=== PATIENT | male | born 1970 | race Caucasian/White ===

== ENCOUNTER 2020-12-13 18:20 | Inpatient (IN) | payer OTHER, SELFPAY ==
--- NOTE | 2020-12-13 | ECG_ITS ---
Test Reason : REPEAT Blood Pressure : / mmHG Vent. Rate : 085 BPM Atrial Rate : 085 BPM P-R Int : 136 ms QRS Dur : 098 ms QT Int : 370 ms P-R-T Axes : 011 018 031 degrees QTc Int : 440 ms Normal sinus rhythm cannot exclude old Inferior infarct , age undetermined Abnormal ECG When compared with ECG of 13-DEC-2020 19:56, No significant change was found Referred By: Generic ED Physician Electronically Signed By:RANCHO GODWIN
--- NOTE | 2020-12-13 | ECG_ITS ---
Test Reason : REPEAT Blood Pressure : / mmHG Vent. Rate : 080 BPM Atrial Rate : 080 BPM P-R Int : 146 ms QRS Dur : 100 ms QT Int : 368 ms P-R-T Axes : 016 026 044 degrees QTc Int : 424 ms Normal sinus rhythm Normal ECG When compared with ECG of 13-DEC-2020 20:35, No significant change was found Referred By: Generic ED Physician Electronically Signed By:RANCHO GODWIN
--- NOTE | ~2020-12-13 | XR_ITS ---
EXAMINATION: XR CHEST CLINICAL INFORMATION: Chest pain COMPARISON: 06/29/2019 TECHNIQUE: Frontal view of the chest was obtained. FINDINGS: Again seen are changes of median sternotomy. No significant abnormality is noted involving the heart, lungs, mediastinum, bony thorax or soft tissues. XR/XR chest 1V IMPRESSION: No acute intrathoracic disease.
[2020-12-13 18:27] VITALS: BP 134/99; PULSE 82; RESP 20; TEMP 37.2; O2SAT 95; BMI 35.9
--- NOTE | 2020-12-13 18:47 | ECG_ITS ---
Test Reason : CHEST PAIN(REPEAT) Blood Pressure : / mmHG Vent. Rate : 090 BPM Atrial Rate : 090 BPM P-R Int : 000 ms QRS Dur : 094 ms QT Int : 360 ms P-R-T Axes : 000 028 039 degrees QTc Int : 440 ms Accelerated Junctional rhythm Abnormal ECG When compared with ECG of 13-DEC-2020 18:36, Junctional rhythm has replaced Sinus rhythm Referred By: Charlotte Foote Electronically Signed By:
--- NOTE | 2020-12-13 18:47 | ED_ITS ---
HPI - Chest Pain General Chief Complaint: Chest Pain Stated Complaint: Chest pain Time Seen by Provider: 12/13/20 22:20 Source: patient Mode of arrival: ambulatory Limitations: no limitations History of Present Illness HPI narrative: 50-year-old male with significant past medical history of insulin-dependent type 2 diabetes, asthma, COPD on 2 L nasal cannula continuous, history of renal cell carcinoma with right-sided nephrectomy, CAD status post CABG with stent in RCA and COOK to the LAD with 9 stents, history of FL in 2011, 2012, 2014, and 2015, hyperlipidemia, anxiety, hypertension, obstructive sleep apnea noncompliant with CPAP, personality disorder, presents with substernal chest pain that woke him up at 9:00 a.m.. States that this pain is 10/10, radiates up to his clavicle and down to his left arm. He has had this before several times, and is telling me that he never has any elevated cardiac enzymes or abnormal EKGs with his MIs. He did take nitroglycerin 3 tablets at 9:00 a.m. and repeated the dose at noon, states that he presents because the nitroglycerin did not help him. Does not report any trauma, fevers, chills, palpitations, shortness of breath, shortness of breath on exertion, diaphoresis, abdominal pain, abdominal distention, dysuria, hematuria, diarrhea, constipation, hematoch ezia, melena, or any other concerning symptoms. Related Data Home Medications Medication Instructions Recorded Confirmed acetaminophen [8 Hour Pain 650 mg PO Q8H PRN 12/13/20 12/13/20 Reliever] albuterol sulfate 2 puff INHALATION Q6H PRN 12/13/20 12/13/20 amitriptyline 1 tab PO BEDTIME 12/13/20 12/13/20 amlodipine 1 tab PO DAILY 12/13/20 12/13/20 aspirin 1 tab PO DAILY 12/13/20 12/13/20 atorvastatin 1 tab PO DAILY 12/13/20 12/13/20 cetirizine 1 tab PO DAILY 12/13/20 12/13/20 clonazepam 1 tab PO BEDTIME 12/13/20 12/13/20 cyclobenzaprine 1 tab PO TID PRN 12/13/20 12/13/20 docusate sodium [DOK] 1 cap PO BID 12/13/20 12/13/20 empagliflozin [Jardiance] 1 tab PO DAILY 12/13/20 12/13/20 ezetimibe 1 tab PO DAILY 12/13/20 12/13/20 gabapentin 300 mg PO BID@0900,1500 12/13/20 12/13/20 gabapentin 600 mg PO BEDTIME 12/13/20 12/13/20 gemfibrozil 600 mg PO BID 12/13/20 12/13/20 insulin glargine [Lantus Solostar 10 unit SUBCUT BID 12/13/20 12/13/20 U-100 Insulin] isosorbide mononitrate 1 tab PO DAILY 12/13/20 12/13/20 isosorbide mononitrate 1 tab PO DAILY 12/13/20 12/13/20 ketoconazole 1 appl TOPICAL DAILY 12/13/20 12/13/20 magnesium oxide 1 tab PO BID 12/13/20 12/13/20 metformin 1 tab PO BID 12/13/20 12/13/20 metoprolol succinate 100 mg PO BID 12/13/20 12/13/20 montelukast 1 tab PO DAILY 12/13/20 12/13/20 nitroglycerin 0.4 mg SUBLINGUAL Q5M PRN 12/13/20 12/13/20 omeprazole 1 cap PO DAILY 12/13/20 12/13/20 oxycodone 1 tab PO Q8H PRN 12/13/20 12/13/20 sennosides [senna] 2 tab PO DAILY 12/13/20 12/13/20 ticagrelor [Brilinta] 1 tab PO BID 12/13/20 12/13/20 umeclidinium [Incruse Ellipta] 1 inh INHALATION DAILY 12/13/20 12/13/20 varenicline [Chantix] 1 tab PO BID 12/13/20 12/13/20 Allergies Allergy/AdvReac Type Severity Reaction Status Date / Time SHELFISH Allergy Unknown Uncoded 12/31/18 00:00 TORADOL Allergy Unknown Uncoded 12/31/18 00:00 Review of Systems Review of Systems: Constitutional: No Weight loss, No Fever, No Chills, No Night Sweats, No Fatigue, No Malaise ENT/Mouth: No Hearing loss, No Ear Pain, No Nasal Congestion, No Sinus Pain, No Hoarseness, No sore throat, No Rhinorrhea, No Swallowing Difficulty Eyes: No Eye Pain, No Swelling, No Redness, No Foreign Body, No Discharge, No Vision Changes Cardiovascular: Positive substernal Chest Pain, no SOB, no Dyspnea on Exertion, No Orthopnea, No Edema, No Palpitations Respiratory: No Cough, No Sputum, No Wheezing, No Smoke Exposure, No Dyspnea Gastrointestinal: No Nausea, No Vomiting, No Diarrhea, No abdominal Pain, No Hematochezia, No Melena Genitourinary: No irregular bleeding, No Dysuria, No Urinary Frequency, No Hematuria, No Urinary Incontinence, No Urgency, No Flank Pain, No Urinary Flow Changes, No Hesitancy Musculoskeletal: No joint pain, No Myalgias, No Joint Swelling Skin: No Skin Lesions, No rash Neuro: No Weakness, No Numbness, No Paresthesias, No Loss of Consciousness, No Dizziness, No Headache Psych: No Anxiety/Panic, No Depression, No SI/HI/AH/VH Heme/Lymph: No Bruising, No Bleeding,No Lymphadenopathy Endocrine: No Polyuria, No Polydipsia, No Temperature Intolerance Yes all other systems are reviewed and are negative FOR[facility], [facility] Past Medical History Attestation statement: The following information was validated with the patient. Source: old records reviewed Medical History Asthma CAD (coronary artery disease) Cancer of kidney COPD (chronic obstructive pulmonary disease) Diabetes Surgical History History of appendectomy Hx of cholecystectomy S/P CABG x 2 Stented coronary artery Social History Social History Alcohol intake: never Smoking Status: Never smoker Use of substances other than those prescribed or required for medical reasons: No Advance Directives: No Advance Directives Information Provided: Yes Physical Exam Vital Signs: Vital Signs: Last Vital Signs Temp 97.3 F 12/14/20 00:00 Pulse 78 12/14/20 00:00 Resp 20 12/14/20 00:00 BP 145/81 H 12/14/20 00:00 Pulse Ox 96 12/14/20 00:00 Body Mass Index 35.9 Appearance: Alert. Oriented X3. Severe distress. Head: Normal external exam. Normocephalic. Atraumatic. No Hernandez signs noted. No raccoon eyes noted Eyes: PERRLA. EOMI. Conjunctiva and sclera normal. Eyelids normal. ENT: TM's Normal. Pharynx normal. Uvula midline. Moist mucous membranes. No trismus noted. No drooling noted. No muffled voice noted. Neck: Normal inspection. Neck supple. No adenopathy. Thyroid Normal. No meningeal signs. No neck mass noted. CVS: Well-healed scar consistent with midline sternotomy, Normal heart rate and rhythm. Heart sound normal. No murmurs noted. Pulses equal to all extremities. Respiratory: No respiratory distress. Painless inspiration. Breath sounds normal. No wheezes/rales/rhonchi noted. Chest nontender. No accessory muscle usage noted or decreased air movement noted. Abdomen: Soft and nontender. Bowel sounds normal in all 4 quadrants. No distention noted. No organomegaly noted. No visible injury noted. Back: No CVA tenderness. Full range of motion noted. Skin: Skin warm and dry. Normal skin color. Normal skin turgor. No rashes/lesions/lacerations noted. Extremities: No lower extremity edema. Extremities exhibit normal range of motion. Extremities nontender. Neuro: cranial nerves 2-12 intact, no focal neural deficits, strength 5/5 to all extremities, No motor deficit. No sensory deficit. Course Course Course Narrative: 50-year-old male past medical history of FL, CABG, diabetes type 2, obesity, history of kidney cancer presents with 10/10 substernal chest pain that started this morning. This pain is now radiating up to his left clavicle and and arm. He did use nitroglycerin this morning at around 9:00 a.m., took 3 tabs, had poor relief and took a 2nd round of 3 tabs of nitro with no relief. He does take Brilinta on a daily basis. EKG at 6:36 p.m. shows normal sinus with ventricular rate of 85 beats per minute. Patient has had a history of open CABG x2, states that he has never had an abnormal EKG with his prior STEMI. 7:12 p.m. 2 doses of 4 mg of morphine IV push ineffective for his pain management. Order for fentanyl 50 mcg and Nitro patch. Repeat EKG ordered at this time. 7:19 p.m. Records obtained from [facility], patient has multiple presentations for substernal chest pain with radiation to the back and left arm, unrelieved by nitro. Review of the report from 09/02/2020 indicates that he w as supposed to have additional stents placed at the [facility] however his surgery was canceled because an elevated A1c. Note from [facility] on 09/03/2020 states that patient has a history of chronic noncardiac chest pain, has known ischemic heart disease with 12 angiograms and 9 stents with single-vessel CABG including COOK to the LAD, there is a note of a broken sternal wire. Throughout the stay during the admission his troponins were always negative, EKGs were always normal sinus without ST depression or elevation. Note on page 14/53 states ?patient with known heart disease as above who presents with recurrent pain. It is on surprising that he has continued to have chest pain before and after surgery as he is chronic noncardiac pain. It will always be difficult to know if he is ever having angina given the chronic pain, repeat stress test at this point is unnecessary and he has already had significant repeated radiation exposure from various imaging tests. ... Unless he is having a clear exertional angina symptoms or elevated troponin dictating MD would not pursue ischemic evaluation as this could balance his risk of FL with risk of repeated testing radiation exposure. Also seems unlikely that his pain is related to broken sternal wire as he had this pain prior to surgery as well. Will defer any repair if needed to [facility] as outpatient? 7:38 p.m. pain is 8/10 after fentanyl. 8:[address] Cho via [place] text, plan is to admit. 8:07 p.m. patient resting comfortably, low blood pressure reported by RN. Patient is alert oriented x4, even unlabored respirations, no indication of further adverse drug reaction. 8:[address] Don plan is for repeat troponin and admission if troponin is negative. 8:25 p.m. blood pressure 117/60, pain 7/10. 9:00 p.m., patient sitting in his bed, appears comfortable, texting his family on his cellphone. When this LACQUER PIN PRESS OPERATOR went to speak to him, he stated that the pain was starting to return and started grasping at his chest. Vital signs are stable, heart rate in the 70s, terrazzo polisher helper at bedside shows a normal sinus rhythm. 9:22 p.m. RN updated this LACQUER PIN PRESS OPERATOR that patient wanted an A1c drawn so he could have surgery at the [facility]. Patient was updated that A1c is not an emergency medicine lab value. Patient visibly upset, stated that his chest pain was getting worse. 9:35 p.m. discussion with this LACQUER PIN PRESS OPERATOR and charger operator with patient regarding plan of care for admission based on discussion with and hospitalist Dr. Don. Patient states that he knows his pain is going to come back, feels like no one understands him, states that he wants to go home because he is not getting what he needs. He was reminded that patients do not just going to surgery because they have chest pain that there is a process to follow up on and that he needs prior testing before such invasive procedures and hospital admission for assessment, he does understand this and states that he has been through this ?so many times?. Prior to this discussion he was considering leaving against medical advice, at this time he is willing to stay to complete the exams necessary for further care. 9:[address] Cho for repeat trop, plan of care is for admission, he will evaluate in the morning and decide plan. Discussed this with hospitalist, patient observation. MDM - Chest Pain Differential Diagnosis Differential diagnosis: Likely fracture of rib, pneumothorax, atypical chest pain, st elevation myocardial infarction, costochondritis and chest pain Medical Records Data Attestation: I reviewed the patient's medical records. Lab Data Attestation: I reviewed the patient's lab results. Result diagrams: 12/13/20 18:52 12/13/20 18:52 Labs: Lab Results 12/13/20 12/13/20 12/13/20 Range/Units 18:50 18:52 18:52 WBC 6.5 (4.8-10.8) X10*3/uL RBC 6.06 H (4.60-5.80) X10*6/uL Hgb 13.5 L (14.0-18.0) g/dl Hct 43.4 (42-52) % MCV 71.6 L (80-98) fL MCH 22.3 L (27.0-33.0) pg MCHC 31.1 (31.0-36.0) g/dl RDW 17.6 H (11.0-16.0) % Plt Count 371 (160-400) X10*3/uL MPV 9.6 (9.4-12.4) fL Immature Gran % (Auto) 0.5 H (0.0-0.4) % Neut % (Auto) 50.0 (45-73) % Lymph % (Auto) 37.5 (20-40) % [place] % (Auto) 9.6 (2-11) % Eos % (Auto) 2.1 (0-4) % Baso % (Auto) 0.3 (0-2) % Lymph # (Auto) 2.5 (1.2-4.9) X10*3/uL [place] # (Auto) 0.6 (0.1-1.2) X10*3/uL Eos # (Auto) 0.1 (0.0-0.4) X10*3/uL Baso # (Auto) 0.0 (0.0-0.2) X10*3/uL Abs Immat Gran (auto) 0.03 (0.00-0.03) X10*3/uL Absolute Neuts (auto) 3.3 (2.0-8.3) X10*3/uL Absolute Nucleated RBC 0.000 (0.0-0.012) X10*3/uL Nucleated RBC % (auto) 0.0 (0.0-0.2) /100WBC PT 11.6 (10.8-13.0) SEC INR 1.0 (0.9-1.1) APTT 36.8 (24.1-38.0) SEC D-Dimer TNP Sodium (135-145) mmol/L Potassium (3.3-5.1) mmol/L Chloride (96-108) mmol/L Carbon Dioxide (22-29) mmol/L Anion Gap (12-20) BUN (9-16) mg/dL Creatinine (0.5-1.4) mg/dL Estim Creat Clear Calc Estimated GFR POC Glucose 160 H (60-115) mg/dL Random Glucose (60-115) mg/dL Calcium (8.4-10.2) mg/dL Magnesium (1.6-2.6) mg/dL Total Bilirubin (0.0-1.0) mg/dL Direct Bilirubin (0.0-0.5) mg/dL AST (5-37) U/L ALT (0-40) U/L Alkaline Phosphatase (39-117) U/L Troponin I High Sens (<3.5-35.0) ng/L B-Natriuretic Peptide (<100) pg/mL Total Protein (6.5-8.0) g/dL Albumin (3.5-5.0) g/dL Lipase (8-78) U/L Coronavirus (PCR) (Negative) Influenza Type A (PCR) (Negative) Influenza Type B (PCR) (Negative) RSV RNA Qual (PCR) (Negative) 12/13/20 12/13/20 12/13/20 Range/Units 18:52 18:52 20:09 WBC (4.8-10.8) X10*3/uL RBC (4.60-5.80) X10*6/uL Hgb (14.0-18.0) g/dl Hct (42-52) % MCV (80-98) fL MCH (27.0-33.0) pg MCHC (31.0-36.0) g/dl RDW (11.0-16.0) % Plt Count (160-400) X10*3/uL MPV (9.4-12.4) fL Immature Gran % (Auto) (0.0-0.4) % Neut % (Auto) (45-73) % Lymph % (Auto) (20-40) % [place] % (Auto) (2-11) % Eos % (Auto) (0-4) % Baso % (Auto) (0-2) % Lymph # (Auto) (1.2-4.9) X10*3/uL [place] # (Auto) (0.1-1.2) X10*3/uL Eos # (Auto) (0.0-0.4) X10*3/uL Baso # (Auto) (0.0-0.2) X10*3/uL Abs Immat Gran (auto) (0.00-0.03) X10*3/uL Absolute Neuts (auto) (2.0-8.3) X10*3/uL Absolute Nucleated RBC (0.0-0.012) X10*3/uL Nucleated RBC % (auto) (0.0-0.2) /100WBC PT (10.8-13.0) SEC INR (0.9-1.1) APTT (24.1-38.0) SEC D-Dimer Sodium 140 (135-145) mmol/L Potassium 4.9 (3.3-5.1) mmol/L Chloride 105 (96-108) mmol/L Carbon Dioxide 22 (22-29) mmol/L Anion Gap 18 (12-20) BUN 21 H (9-16) mg/dL Creatinine 1.30 (0.5-1.4) mg/dL Estim Creat Clear Calc 89.4 Estimated GFR 59 POC Glucose (60-115) mg/dL Random Glucose 155 H (60-115) mg/dL Calcium 10.3 H (8.4-10.2) mg/dL Magnesium 2.0 (1.6-2.6) mg/dL Total Bilirubin 0.5 (0.0-1.0) mg/dL Direct Bilirubin < 0.2 (0.0-0.5) mg/dL AST 16 (5-37) U/L ALT 21 (0-40) U/L Alkaline Phosphatase 88 (39-117) U/L Troponin I High Sens 4.6 (<3.5-35.0) ng/L B-Natriuretic Peptide 16 (<100) pg/mL Total Protein 8.6 H (6.5-8.0) g/dL Albumin 4.8 (3.5-5.0) g/dL Lipase 56 (8-78) U/L Coronavirus (PCR) NEGATIVE (Negative) Influenza Type A (PCR) NEGATIVE (Negative) Influenza Type B (PCR) NEGATIVE (Negative) RSV RNA Qual (PCR) NEGATIVE (Negative) 12/13/20 Range/Units 21:16 WBC (4.8-10.8) X10*3/uL RBC (4.60-5.80) X10*6/uL Hgb (14.0-18.0) g/dl Hct (42-52) % MCV (80-98) fL MCH (27.0-33.0) pg MCHC (31.0-36.0) g/dl RDW (11.0-16.0) % Plt Count (160-400) X10*3/uL MPV (9.4-12.4) fL Immature Gran % (Auto) (0.0-0.4) % Neut % (Auto) (45-73) % Lymph % (Auto) (20-40) % [place] % (Auto) (2-11) % Eos % (Auto) (0-4) % Baso % (Auto) (0-2) % Lymph # (Auto) (1.2-4.9) X10*3/uL [place] # (Auto) (0.1-1.2) X10*3/uL Eos # (Auto) (0.0-0.4) X10*3/uL Baso # (Auto) (0.0-0.2) X10*3/uL Abs Immat Gran (auto) (0.00-0.03) X10*3/uL Absolute Neuts (auto) (2.0-8.3) X10*3/uL Absolute Nucleated RBC (0.0-0.012) X10*3/uL Nucleated RBC % (auto) (0.0-0.2) /100WBC PT (10.8-13.0) SEC INR (0.9-1.1) APTT (24.1-38.0) SEC D-Dimer Sodium (135-145) mmol/L Potassium (3.3-5.1) mmol/L Chloride (96-108) mmol/L Carbon Dioxide (22-29) mmol/L Anion Gap (12-20) BUN (9-16) mg/dL Creatinine (0.5-1.4) mg/dL Estim Creat Clear Calc Estimated GFR POC Glucose (60-115) mg/dL Random Glucose (60-115) mg/dL Calcium (8.4-10.2) mg/dL Magnesium (1.6-2.6) mg/dL Total Bilirubin (0.0-1.0) mg/dL Direct Bilirubin (0.0-0.5) mg/dL AST (5-37) U/L ALT (0-40) U/L Alkaline Phosphatase (39-117) U/L Troponin I High Sens 4.5 (<3.5-35.0) ng/L B-Natriuretic Peptide (<100) pg/mL Total Protein (6.5-8.0) g/dL Albumin (3.5-5.0) g/dL Lipase (8-78) U/L Coronavirus (PCR) (Negative) Influenza Type A (PCR) (Negative) Influenza Type B (PCR) (Negative) RSV RNA Qual (PCR) (Negative) Imaging Data Chest x-ray: Attestation: I personally reviewed and interpreted this imaging study as follows: Radiologist's impression: EXAMINATION: XR CHEST CLINICAL INFORMATION: Chest pain COMPARISON: 06/29/2019 TECHNIQUE: Frontal view of the chest was obtained. FINDINGS: Again seen are changes of median sternotomy. No significant abnormality is noted involving the heart, lungs, mediastinum, bony thorax or soft tissues. XR/XR chest 1V IMPRESSION: No acute intrathoracic disease. ECG Data ECG #1: Attestation: I personally reviewed and interpreted this ECG as follows: ECG interpretation date: 12/13/20 ECG interpretation time: 18:36 Prior ECG tracings: available for review Interpretation: Vent. rate 85 BPM MN interval 116 ms QRS duration 96 ms QT/QTc 356/423 ms P-R-T axes -15 28 38 Normal sinus rhythm Normal ECG When compared with ECG of 29-JUN-2019 20:20, Nonspecific T wave abnormality, improved in Inferior leads ECG #2: Attestation: I personally reviewed and interpreted this ECG as follows: ECG interpretation date: 12/13/20 ECG interpretation time: 19:13 Prior ECG tracings: available for review Interpretation: Vent. rate 88 BPM MN interval 112 ms QRS duration 98 ms QT/QTc 356/430 ms P-R-T axes -18 34 24 Normal sinus rhythm Possible Inferior infarct , age undetermined Abnormal ECG When compared with ECG of 13-DEC-2020 19:12, Sinus rhythm has replaced Junctional rhythm ECG #3: Attestation: I personally reviewed and interpreted this ECG as follows: ECG interpretation date: 12/13/20 ECG interpretation time: 19:41 Prior ECG tracings: available for review Interpretation: Vent. rate 84 BPM MN interval 144 ms QRS duration 100 ms QT/QTc 360/425 ms P-R-T axes 26 22 22 Normal sinus rhythm Inferior infarct (cited on or before 13-DEC-2020) Abnormal ECG When compared with ECG of 13-DEC-2020 19:13, No significant change was found ECG #4: Attestation: I personally reviewed and interpreted this ECG as follows: ECG interpretation date: 12/13/20 ECG interpretation time: 20:35 Prior ECG tracings: available for review Interpretation: Vent. rate 85 BPM MN interval 136 ms QRS duration 98 ms QT/QTc 370/440 ms P-R-T axes 11 18 31 Normal sinus rhythm Inferior infarct , age undetermined Abnormal ECG When compared with ECG of 13-DEC-2020 19:56, No significant change was found ekg 5: Attestation: I personally reviewed and interpreted this ECG as follows: ECG interpretation date: 12/13/20 ECG interpretation time: 21:35 Interpretation: Vent. rate 80 BPM MN interval 146 ms QRS duration 100 ms QT/QTc 368/424 ms P-R-T axes 16 26 44 Normal sinus rhythm Normal ECG When compared with ECG of 13-DEC-2020 20:35, No significant change was found Critical Care Time Critical Care Time Critical Care Time: Yes Total Critical Care Time: 120 Attestation: I have personally provided critical care time exclusive of time spent on separately billable procedures. Time includes review of laboratory data, radiology results, discussion with consultants, and monitoring for potential decompensation. Interventions were performed as documented. Discharge Plan Discharge Clinical Impression: Chest pain, Angina at rest Patient Disposition: Admitted As Inpatient Interventions: Admission Worksheet (ED) Last Done: 12/13/20 23:35 Discharge Date/Time: 12/13/20 23:59
[2020-12-13 18:50] VITALS: BP 139/90; PULSE 86; RESP 18; O2SAT 98
--- NOTE | 2020-12-13 18:54 | PC.NURSE ---
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 pt's cardiac surgery occured at [facility] in [place].
[2020-12-13 18:56] VITALS: RESP 20
[2020-12-13 18:56] LABS: Glucose, Whole Blood 160 mg/dL (60-115)
[2020-12-13] MEDS: Morphine Sulfate 4 MG/ML CARTRIDGE IVPUSH ×2 (18:56→19:05)
[2020-12-13 19:02] LABS: MANUAL DIFF FLAG NO
[2020-12-13 19:07] LABS: Basophils Percent Auto 0.3 % (0-2); Eosinophils Absolute Auto 0.1 X10*3/uL (0.0-0.4); Eosinophils Percent Auto 2.1 % (0-4); Hematocrit 43.4 % (42-52); Hemoglobin 13.5 g/dl (14.0-18.0); Imm Gran Abs Auto 0.03 X10*3/uL (0.00-0.03); Imm Gran Pct Auto 0.5 % (0.0-0.4); Lymphocytes Absolute Auto 2.5 X10*3/uL (1.2-4.9); Lymphocytes Percent Auto 37.5 % (20-40); Mean Corpuscular HGB Conc 31.1 g/dl (31.0-36.0); Mean Corpuscular Hemoglobin 22.3 pg (27.0-33.0); Mean Corpuscular Volume 71.6 fL (80-98); Mean Platelet Volume 9.6 fL (9.4-12.4); Monocytes Absolute Auto 0.6 X10*3/uL (0.1-1.2); Monocytes Percent Auto 9.6 % (2-11); Neutrophils Absolute Auto 3.3 X10*3/uL (2.0-8.3); Platelet Count 371 X10*3/uL (160-400); Red Blood Count 6.06 X10*6/uL (4.60-5.80); Red Cell Distribution Width 17.6 % (11.0-16.0); White Blood Count 6.5 X10*3/uL (4.8-10.8)
--- NOTE | 2020-12-13 19:10 | ECG_ITS ---
Test Reason : CHEST PAIN Blood Pressure : / mmHG Vent. Rate : 084 BPM Atrial Rate : 084 BPM P-R Int : 144 ms QRS Dur : 100 ms QT Int : 360 ms P-R-T Axes : 026 022 022 degrees QTc Int : 425 ms Normal sinus rhythm Cannot exclude Inferior infarct (can be normal variant) Abnormal ECG When compared with ECG of 13-DEC-2020 19:13, No significant change was found Referred By: Generic ED Physician Electronically Signed By:RANCHO GODWIN
[2020-12-13 19:13] LABS: Prothrombin Time 11.6 SEC (10.8-13.0)
[2020-12-13] MEDS: fentaNYL citrate/PF 100 MCG/2 ML VIAL 50 MCG IVPUSH ×2 (19:14→20:39)
[2020-12-13 19:16] LABS: Partial Thromboplastin Time 36.8 SEC (24.1-38.0)
[2020-12-13 19:19] VITALS: BP 139/71; PULSE 78; RESP 20; O2SAT 95
[2020-12-13] MEDS: Nitroglycerin 2 % Oint 1 GM Packet 0.5 INCH TRANSDERMA (19:26)
[2020-12-13 19:40] VITALS: BP 122/78; PULSE 84; RESP 20; O2SAT 94
[2020-12-13 19:46] LABS: Alanine Aminotransferase 21 U/L (0-40); Albumin Level 4.8 g/dL (3.5-5.0); Alkaline Phosphatase 88 U/L (39-117); Anion Gap 18 (12-20); Aspartate Amino Transferase 16 U/L (5-37); B Type Natriuretic Peptide 16 pg/mL (<100); Bilirubin Direct < 0.2 mg/dL (0.0-0.5); Bilirubin Total 0.5 mg/dL (0.0-1.0); Blood Urea Nitrogen 21 mg/dL (9-16); Calcium 10.3 mg/dL (8.4-10.2); Carbon Dioxide 22 mmol/L (22-29); Chloride 105 mmol/L (96-108); Creatinine Clr Calc Pharmacy 89.4; Estimated Glomerular Filt Rate 59; Glucose Random 155 mg/dL (60-115); Lipase 56 U/L (8-78); Potassium 4.9 mmol/L (3.3-5.1); Sodium 140 mmol/L (135-145); Total Protein 8.6 g/dL (6.5-8.0); Troponin-I High Sensitivity 4.6 ng/L (<3.5-35.0)
[2020-12-13 20:26] VITALS: BP 117/60; PULSE 79; RESP 20; TEMP 36.5; O2SAT 95
--- NOTE | 2020-12-13 20:42 | PC.NURSE ---
now hourly ekg
--- NOTE | 2020-12-13 20:50 | PC.NURSE ---
pt now appears to be comfortable and discussing care on phone with family. no longer crying a this time or grasping chest.
--- NOTE | 2020-12-13 20:59 | PC.NURSE ---
DORIS SHAH requested EKG's every hour starting at 20:35
[2020-12-13 21:01] LABS: Influenza A PCR NEGATIVE (Negative); Influenza B PCR NEGATIVE (Negative); Resp Syncy Virus RNA Qual PCR NEGATIVE (Negative); SARS COV2 PCR INHOUSE NEGATIVE (Negative)
--- NOTE | 2020-12-13 21:14 | PC.NURSE ---
Charlotte fernandes asked this rn to redraw 2200 troponin now. This casualty underwriter and Lorena ERT to bedside. Patient then asked me to drawn an A1c level. I asked why. Pt expained Well, I need an A1c under 9, so that way I can go to [facility] to get surgery. I can't deal with this pain anymore . pt reports no relief to pain after medication and Nitro administration. MLP aware. ERT to draw blood.
--- NOTE | 2020-12-13 21:19 | PC.NURSE ---
pt notified we are unable to draw h1c due to non emergency need. patient became visbibly upset. Pt reported that he has not had any pain relief. Pt then began to self induce vomiting by forceful retching and coughing. MLP aware. Plan to medicate with zofran.
--- NOTE | 2020-12-13 21:27 | PC.NURSE ---
pt now on phone saying i should have went to [facility]. monitoring at this time .
--- NOTE | 2020-12-13 21:43 | PC.NURSE ---
PROVIDER AT BEDSIDE WITH THIS RN ABOUT PLAN OF CARE. PATIENT STATING HE DOES NOT WANT TO STAY IN THE HOSPITAL. PATIENT STATED I AM AFRAID THE PAIN IS GOING TO COME BACK . PROVIDER EXPLAINING TO PATIENT THAT IN THE HOSPITAL WE CAN TREAT HIS PAIN. TALKING ON THE PHONE TO SOMEONE THAT HE WANTS TO GO TO [facility]. THERE IS NO INDICATION AT THIS TIME FOR A TRANSFER, PATIENT SAD HE WOULD LEAVE AND SOMEONE WILL GET HIM THERE. PATIENT AGREEABLE TO STAY FOR REPEAT EKG AND TROPONIN. PATIENT VERBALIZED UNDERSTANDING OF NEEDING A STRESS TEST AND CARDIOLOGY FOLLOW UP, ALL WHICH CAN BE PROVIDED AT THIS FACILITY. PATIENT UNSURE AT THE END OF THE CONVERSATION IF HE WOULD STAY. PROVIDER PLANNING ON TOUCHING BASE WITH PATIENT AGAIN ONCE REPEAT TROPONIN AND EKG ARE COMPLETED.
[2020-12-13 21:45] LABS: Troponin-I High Sensitivity 4.5 ng/L (<3.5-35.0)
[2020-12-13] MEDS: ondansetron HCL 4 MG/2 ML VIAL IVPUSH (21:54)
--- NOTE | 2020-12-13 22:14 | PM.IMHP ---
History of Present Illness Date of Service: 12/13/20 Chief Complaint: Chest pain 50-year-old male With a past medical history of hypertension, hyperlipidemia, diabetes, coronary artery disease status post CABG/9 stents, asthma, COPD on 2 L of home oxygen, history of renal cell carcinoma status post right-sided nephrectomy, anxiety, SANDEE noncompliant with CPAP, personality disorder presented to the hospital with a chief complaint of chest pain. Patient mentioned that his pain started around 9:00 a.m. in the morning located on the left side of the chills/substernal; radiating to the left arm-subsequently has taken nitroglycerin sublingual x3 with improvement in the chest pain and later in noon time he had the chest pain again and he took 2 sublingual nitroglycerin without significant improvement hence decided to come to the ER for further evaluation. Patient denies any chest pain at the time of my interview. Denies any lightheadedness dizziness sweating. Denies any fever chills cough. Denies any nausea vomiting or diarrhea. Review of all other systems is negative except mentioned above ER course: Per ER team home patient had chest pain on presentation, EKG was nonischemic, EKGs were repeated which were unchanged. Troponin x2 negative. Patient was given sublingual nitroglycerin, morphine, fentanyl. Subsequently the pain improved. ER team mentioned that this spoke to Cardiology Kayla; who mentioned no heparin and admitted to [facility] to be evaluated in the morning for further management. [facility] Medical History (Updated 12/15/20 @ 14:59 by Jacobo Smith MD) Asthma Atherosclerotic cardiovascular disease CAD (coronary artery disease) Cancer of kidney Chronic obstructive pulmonary disease, unspecified COPD (chronic obstructive pulmonary disease) Diabetes Essential hypertension Other and unspecified hyperlipidemia Type 2 diabetes mellitus with unspecified complications Surgical History (Updated 12/14/20 @ 11:27 by Lenny Cho MD) History of appendectomy Hx of cholecystectomy S/P CABG x 2 Status post coronary artery bypass graft Stented coronary artery Social History Household Members: Family Alcohol intake: never Smoking Status: Former smoker service: No Current occupational status: unemployed Meds Allergies Allergy/AdvReac Type Severity Reaction Status Date / Time SHELFISH Allergy Unknown Uncoded 12/31/18 00:00 TORADOL Allergy Unknown Uncoded 12/31/18 00:00 Active Medications: Current Medications Generic Name Dose Route Start Last Admin Trade Name Freq PRN Reason Stop Dose Admin Acetaminophen 650 mg 12/13/20 22:06 Acetaminophen 325 Mg Tablet PO Q6H PRN Pain, Mild (Pain Scale 1-3) Albuterol Sulfate 2 puff 12/13/20 22:09 Albuterol Sulfate 90 Mcg 8 Gm Inhaler INHALE Q6H PRN Shortness Of Breath Amitriptyline HCl 10 mg 12/14/20 21:00 Amitriptyline Hcl 10 Mg Tablet PO BEDTIME [facility] Amlodipine Besylate 10 mg 12/14/20 09:00 Amlodipine Besylate 10 Mg Tablet PO DAILY [facility] Protocol Aspirin 81 mg 12/14/20 09:00 Aspirin Enteric Coated 81 Mg Tablet.Dr PO DAILY [facility] Atorvastatin Calcium 80 mg 12/14/20 09:00 Atorvastatin Calcium 80 Mg Tablet PO DAILY [facility] Clonazepam 1 mg 12/14/20 21:00 Clonazepam 1 Mg Tablet PO BEDTIME [facility] Cyclobenzaprine HCl 5 mg 12/13/20 22:09 Cyclobenzaprine Hcl 5 Mg Tablet PO TID PRN Muscle Spasm Docusate Sodium 100 mg 12/14/20 09:00 Docusate Sodium 100 Mg Capsule PO BID [facility] Ezetimibe 10 mg 12/14/20 09:00 Ezetimibe 10 Mg Tablet PO DAILY [facility] Enoxaparin Sodium 40 mg 12/13/20 23:00 Enoxaparin Sodium 40 Mg/0.4 Ml Syringe SUBCUT Q24H [facility] Gabapentin 300 mg 12/14/20 09:00 Gabapentin 300 Mg Capsule PO BID@0900,1500 [facility] Gabapentin 600 mg 12/14/20 21:00 Gabapentin 300 Mg Capsule PO BEDTIME [facility] Gemfibrozil 600 mg 12/14/20 09:00 Gemfibrozil 600 Mg Tablet PO BID [facility] Insulin Glargine 10 unit 12/14/20 09:00 Insulin Glargine,Hum.Rec.Anlog 100 Unit/Ml 10 Ml Vial SUBCUT BID [facility] Insulin Human Lispro 0 unit 12/14/20 07:30 Insulin Lispro 100 Unit/Ml 3 Ml Vial SUBCUT QIDACHS [facility] Protocol Isosorbide Mononitrate 30 mg 12/14/20 09:00 Isosorbide Mononitrate 30 Mg Tab.Er.24h PO DAILY [facility] Protocol Isosorbide Mononitrate 60 mg 12/14/20 09:00 Isosorbide Mononitrate 60 Mg Tab.Er.24h PO DAILY [facility] Protocol Loratadine 10 mg 12/14/20 09:00 Loratadine 10 Mg Tablet PO DAILY [facility] Magnesium Oxide 400 mg 12/14/20 09:00 Magnesium Oxide 400 Mg Tablet PO BID [facility] Metoprolol Succinate 100 mg 12/14/20 09:00 Metoprolol Succinate Er 100 Mg Tab.Er.24h PO BID [facility] Protocol Montelukast Sodium 10 mg 12/14/20 09:00 Montelukast Sodium 10 Mg Tablet PO DAILY [facility] Morphine Sulfate 1 mg 12/13/20 22:08 Morphine Sulfate 2 Mg/Ml Cartridge IVPUSH Q4H PRN Chest Pain Nitroglycerin 0.4 mg 12/14/20 00:01 Nitroglycerin 0.4 Mg Tab.Subl SUBLINGUAL Q5M PRN Chest Pain Nitroglycerin 0.4 mg 12/13/20 22:09 Nitroglycerin 0.4 Mg Tab.Subl SUBLINGUAL Q5M PRN Chest Pain Omeprazole 40 mg 12/14/20 09:00 Omeprazole 40 Mg Capsule. PO DAILY [facility] Pharmacy Consult 1 each 12/13/20 18:52 Consult Rx Perform Med Rec MISCELLANE ONCE PRN Consult order Senna 17.2 mg 12/13/20 22:06 Sennosides 8.6 Mg Tablet PO BEDTIME PRN Constipation Sodium Chloride 3 ml 12/14/20 00:00 0.9 % Sodium Chloride Flush 3 Ml Syringe IVFLUSH QSHIFT [facility] Ticagrelor 90 mg 12/14/20 09:00 Ticagrelor 90 Mg Tablet PO BID [facility] Home Medications Medication Instructions Recorded Confirmed Last Taken Type Brilinta 1 tab PO BID 12/13/20 12/13/20 Unknown History Chantix 1 tab PO BID 12/13/20 12/13/20 Unknown History Incruse Ellipta 1 inh INHALATION DAILY 12/13/20 12/13/20 Unknown History Jardiance 1 tab PO DAILY 12/13/20 12/13/20 Unknown History Lantus Solostar U-100 Insulin 10 unit SUBCUT BID 12/13/20 12/13/20 Unknown History acetaminophen [8 Hour Pain 650 mg PO Q8H PRN 12/13/20 12/13/20 Unknown History Reliever] albuterol sulfate 2 puff INHALATION Q6H PRN 12/13/20 12/13/20 Unknown History amitriptyline 1 tab PO BEDTIME 12/13/20 12/13/20 Unknown History amlodipine 1 tab PO DAILY 12/13/20 12/13/20 Unknown History aspirin 1 tab PO DAILY 12/13/20 12/13/20 Unknown History atorvastatin 1 tab PO DAILY 12/13/20 12/13/20 Unknown History cetirizine 1 tab PO DAILY 12/13/20 12/13/20 Unknown History clonazepam 1 tab PO BEDTIME 12/13/20 12/13/20 Unknown History cyclobenzaprine 1 tab PO TID PRN 12/13/20 12/13/20 Unknown History docusate sodium [DOK] 1 cap PO BID 12/13/20 12/13/20 Unknown History ezetimibe 1 tab PO DAILY 12/13/20 12/13/20 Unknown History gabapentin 300 mg PO BID@0900,1500 12/13/20 12/13/20 Unknown History gabapentin 600 mg PO BEDTIME 12/13/20 12/13/20 Unknown History gemfibrozil 600 mg PO BID 12/13/20 12/13/20 Unknown History isosorbide mononitrate 1 tab PO DAILY 12/13/20 12/13/20 Unknown History isosorbide mononitrate 1 tab PO DAILY 12/13/20 12/13/20 Unknown History ketoconazole 1 appl TOPICAL DAILY 12/13/20 12/13/20 Unknown History magnesium oxide 1 tab PO BID 12/13/20 12/13/20 Unknown History metformin 1 tab PO BID 12/13/20 12/13/20 Unknown History metoprolol succinate 100 mg PO BID 12/13/20 12/13/20 Unknown History montelukast 1 tab PO DAILY 12/13/20 12/13/20 Unknown History nitroglycerin 0.4 mg SUBLINGUAL Q5M PRN 12/13/20 12/13/20 Unknown History omeprazole 1 cap PO DAILY 12/13/20 12/13/20 Unknown History oxycodone 1 tab PO Q8H PRN 12/13/20 12/13/20 Unknown History sennosides [senna] 2 tab PO DAILY 12/13/20 12/13/20 Unknown History Physical Exam Vital Signs and Narrative: Vital Signs: Last Vital Signs Temp 97.7 F 12/13/20 20:26 Pulse 79 12/13/20 20:26 Resp 20 12/13/20 20:26 BP 117/60 12/13/20 20:26 Pulse Ox 95 12/13/20 20:26 Body Mass Index 35.9 Gen: Appears be in no acute distress HEENT: NCAT, Moist mucosa. Pulmonary: Vesicular breath sounds, fair air entry CVS: Normal S1-S2 Abdomen: BS+, Soft, Nontender Extremities: Warm well perfused Neuro: Alert and awake. Results Labs CBC and Chem 7: 12/14/20 05:28 12/14/20 05:28 Labs: Laboratory Results - last 24 hr 12/13/20 12/13/20 12/13/20 18:50 18:52 18:52 MCV 71.6 L MCH 22.3 L MCHC 31.1 RDW 17.6 H Plt Count 371 MPV 9.6 Immature Gran % (Auto) 0.5 H Neut % (Auto) 50.0 Lymph % (Auto) 37.5 [place] % (Auto) 9.6 Eos % (Auto) 2.1 Baso % (Auto) 0.3 Lymph # (Auto) 2.5 [place] # (Auto) 0.6 Eos # (Auto) 0.1 Baso # (Auto) 0.0 Abs Immat Gran (auto) 0.03 Absolute Neuts (auto) 3.3 Absolute Nucleated RBC 0.000 Nucleated RBC % (auto) 0.0 PT 11.6 INR 1.0 APTT 36.8 Anion Gap Estim Creat Clear Calc Estimated GFR POC Glucose 160 H Random Glucose Calcium Magnesium Total Bilirubin Direct Bilirubin AST ALT Alkaline Phosphatase Troponin I High Sens B-Natriuretic Peptide Total Protein Albumin Lipase Coronavirus (PCR) Influenza Type A (PCR) Influenza Type B (PCR) RSV RNA Qual (PCR) 12/13/20 12/13/20 12/13/20 18:52 18:52 20:09 MCV MCH MCHC RDW Plt Count MPV Immature Gran % (Auto) Neut % (Auto) Lymph % (Auto) [place] % (Auto) Eos % (Auto) Baso % (Auto) Lymph # (Auto) [place] # (Auto) Eos # (Auto) Baso # (Auto) Abs Immat Gran (auto) Absolute Neuts (auto) Absolute Nucleated RBC Nucleated RBC % (auto) PT INR APTT Anion Gap 18 Estim Creat Clear Calc 89.4 Estimated GFR 59 POC Glucose Random Glucose 155 H Calcium 10.3 H Magnesium 2.0 Total Bilirubin 0.5 Direct Bilirubin < 0.2 AST 16 ALT 21 Alkaline Phosphatase 88 Troponin I High Sens 4.6 B-Natriuretic Peptide 16 Total Protein 8.6 H Albumin 4.8 Lipase 56 Coronavirus (PCR) NEGATIVE Influenza Type A (PCR) NEGATIVE Influenza Type B (PCR) NEGATIVE RSV RNA Qual (PCR) NEGATIVE 12/13/20 21:16 MCV MCH MCHC RDW Plt Count MPV Immature Gran % (Auto) Neut % (Auto) Lymph % (Auto) [place] % (Auto) Eos % (Auto) Baso % (Auto) Lymph # (Auto) [place] # (Auto) Eos # (Auto) Baso # (Auto) Abs Immat Gran (auto) Absolute Neuts (auto) Absolute Nucleated RBC Nucleated RBC % (auto) PT INR APTT Anion Gap Estim Creat Clear Calc Estimated GFR POC Glucose Random Glucose Calcium Magnesium Total Bilirubin Direct Bilirubin AST ALT Alkaline Phosphatase Troponin I High Sens 4.5 B-Natriuretic Peptide Total Protein Albumin Lipase Coronavirus (PCR) Influenza Type A (PCR) Influenza Type B (PCR) RSV RNA Qual (PCR) Imaging Radiologist's Impressions: Impressions Chest X-Ray 12/13/20 18:47 IMPRESSION: No acute intrathoracic disease. Assessment and Plan (1) Chest pain: Status: Acute 50-year-old male with a past medical history of hypertension, hyperlipidemia, diabetes, asthma/COPD on home oxygen, SANDEE, history of renal cell carcinoma status post right nephrectomy, CAD status post 9 stents and CABG presented with chest pain. Chest pain: Currently improved. EKG nonischemic. Troponins x2 negative. Patient had similar presentation to the [facility] recently and was managed conservatively. Cardiology made aware. Continue to monitor on telemetry. Sublingual nitroglycerin and morphine p.r.n. for pain. Patient is also on Imdur at home-which will be continued. Patient will be continued on his home Brilinta. History of CAD: Continue home medications. Diabetes: Insulin sliding scale. Hold home oral hypoglycemic agents. COPD: Stable. Continue home oxygen. For all other chronic conditions, home medications will be continued DVT prophylaxis: Lovenox Code status: Full code
--- NOTE | 2020-12-13 22:50 | PC.NURSE ---
DORIS Porter stated to stop hourly EKGs at 2252
[2020-12-14] VITALS (17 sets, daily range): BP systolic 110–153; BP diastolic 73–89; PULSE 69–78; RESP 16–20; TEMP 36.2–36.7; O2SAT 92–97; BMI 37.6
--- NOTE | 2020-12-14 | ECG_ITS ---
Test Reason : CHEST PAIN Blood Pressure : / mmHG Vent. Rate : 085 BPM Atrial Rate : 085 BPM P-R Int : 116 ms QRS Dur : 096 ms QT Int : 356 ms P-R-T Axes : -15 028 038 degrees QTc Int : 423 ms Normal sinus rhythm Normal ECG When compared with ECG of 29-JUN-2019 20:20, Nonspecific T wave abnormality, improved in Inferior leads Referred By: Generic ED Physician Electronically Signed By:RANCHO GODWIN
[2020-12-14] MEDS: Enoxaparin Sodium 40 MG/0.4 ML SYRINGE SUBCUT (00:12)
[2020-12-14] MEDS: Morphine Sulfate 2 MG/ML CARTRIDGE 1 MG IVPUSH ×4 (00:12→13:30)
[2020-12-14] MEDS: 0.9 % Sodium Chloride Flush 3 ML SYRINGE IVFLUSH ×3 (00:13→15:44)
[2020-12-14] MEDS: Albuterol Sulfate 90 MCG 8 GM INHALER 2 PUFF INHALE (00:35)
[2020-12-14 00:36] LABS: D Dimer < 200 NG/ML
[2020-12-14] MEDS: Albuterol/Iprat 2.5/0.5MG 3 ML AMPUL.NEB INHALE ×2 (04:58→09:51)
[2020-12-14 06:01] LABS: MANUAL DIFF FLAG NO
[2020-12-14] MEDS: Omeprazole 40 MG CAPSULE.DR PO (06:04)
[2020-12-14 06:11] LABS: Basophils Percent Auto 0.2 % (0-2); Eosinophils Absolute Auto 0.1 X10*3/uL (0.0-0.4); Hematocrit 37.8 % (42-52); Hemoglobin 11.6 g/dl (14.0-18.0); Imm Gran Abs Auto 0.02 X10*3/uL (0.00-0.03); Imm Gran Pct Auto 0.3 % (0.0-0.4); Lymphocytes Absolute Auto 2.6 X10*3/uL (1.2-4.9); Mean Corpuscular HGB Conc 30.7 g/dl (31.0-36.0); Mean Corpuscular Hemoglobin 21.9 pg (27.0-33.0); Mean Corpuscular Volume 71.5 fL (80-98); Mean Platelet Volume 9.8 fL (9.4-12.4); Monocytes Absolute Auto 0.7 X10*3/uL (0.1-1.2); Monocytes Percent Auto 11.6 % (2-11); Neutrophils Absolute Auto 2.5 X10*3/uL (2.0-8.3); Neutrophils Percent Auto 41.9 % (45-73); Platelet Count 291 X10*3/uL (160-400); Red Blood Count 5.29 X10*6/uL (4.60-5.80); Red Cell Distribution Width 16.8 % (11.0-16.0); White Blood Count 5.9 X10*3/uL (4.8-10.8)
[2020-12-14 06:31] LABS: Anion Gap 16 (12-20); Blood Urea Nitrogen 21 mg/dL (9-16); Calcium 9.2 mg/dL (8.4-10.2); Carbon Dioxide 22 mmol/L (22-29); Chloride 104 mmol/L (96-108); Creatinine Clr Calc Pharmacy 105.2; Estimated Glomerular Filt Rate > 60; Glucose Random 183 mg/dL (60-115); Magnesium 1.8 mg/dL (1.6-2.6); Potassium 4.3 mmol/L (3.3-5.1); Sodium 138 mmol/L (135-145)
[2020-12-14 08:01] LABS: Glucose, Whole Blood 147 mg/dL (60-115)
[2020-12-14] MEDS: Nitroglycerin 0.4 MG TAB.SUBL SUBLINGUAL ×3 (09:15→13:39)
--- NOTE | 2020-12-14 09:19 | PC.NURSE ---
pt c/o 7/10 mid sternal chest pain radiating to left arm. hospitalist at bedside. pt given 1 mg IV morphine and 0.4 mg sublingual nitroglycerin per EMAR. pt states chest pain now 5/10. EKG completed this am.
[2020-12-14] MEDS: Loratadine 10 MG TABLET PO (09:30)
[2020-12-14] MEDS: Atorvastatin Calcium 80 MG TABLET PO (09:30)
[2020-12-14] MEDS: Gabapentin 300 MG CAPSULE PO ×2 (09:30→15:44)
[2020-12-14] MEDS: Ezetimibe 10 MG TABLET PO (09:30)
[2020-12-14] MEDS: Magnesium Oxide 400 MG TABLET PO (09:30)
[2020-12-14] MEDS: Metoprolol Succinate ER 100 MG TAB.ER.24H PO (09:30)
[2020-12-14] MEDS: Isosorbide Mononitrate 60 MG TAB.ER.24H PO (09:30)
[2020-12-14] MEDS: amLODIPine Besylate 10 MG TABLET PO (09:30)
[2020-12-14] MEDS: Docusate Sodium 100 MG CAPSULE PO (09:30)
[2020-12-14] MEDS: Isosorbide Mononitrate 30 MG TAB.ER.24H PO (09:30)
[2020-12-14] MEDS: Aspirin Enteric Coated 81 MG TABLET.DR PO (09:30)
[2020-12-14] MEDS: Montelukast Sodium 10 MG TABLET PO (09:30)
[2020-12-14] MEDS: Insulin Glargine,Hum.rec.anlog 100 UNIT/ML 10 ML VIAL 10 UNIT SUBCUT (09:31)
[2020-12-14] MEDS: gemfibroziL 600 MG TABLET PO (09:31)
--- NOTE | 2020-12-14 09:50 | PC.NURSE ---
pt resting comfortably at this time
--- NOTE | 2020-12-14 10:30 | MHC.CDI.CONC ---
CDI Concurrent Query Service Date: 12/14/20 Documentation Clarification: Please clarify if you are treating a probable/suspected/likely or confirmed: Chronic respiratory failure Please specify if known PLEASE DO NOT DELETE/MODIFY EXISTING CONTENT Additional information is needed in order to code to the highest accuracy and appropriate Severity of Illness (SOI). Please clarify the information noted below in your progress notes and discharge summary. Risk Factors/Clinical Indicators/Treatments COPD on home oxygen SANDEE/COPD RR 20 on 2 liters oxygen baseline CDS: Kaila Ware [facility], [facility] Contact Number: [phone] Please Review the information above and exercise your independent professional judgment in responding to the query. If you concur, pleas document in the PROGRESS NOTES and DISCHARGE SUMMARY. If you do not agree with the query, please document in the query above. THIS QUERY IS PART OF THE PERMANENT MEDICAL RECORD
--- NOTE | 2020-12-14 10:41 | MHC.CM.PN ---
IMM 12/14, EMR REVIEWED, PT ADMITTED W/CHEST PAIN, CM MET W/PT WHO IS ALERT AND ORIENTED, PT REPORTS HE USES A WALKER OR CANE AT HOME SINCE HIS OPEN HEART SURGERY, PT REPORTS HE HAD FALLEN ON STAIRS AND NOW HAS A BLUE LEATHER SETTER DAILY THROUGH [employer] WHILE HIS IS AT WORK, PT REPORTS HE DOES HIS BLOOD SUGARS 3-4 TIMES A DAY ADN ADMINISTERS HIS OWN SLIDING SCALE INSULIN, PT HAS A CPAP HE NO LONGER USES DUE TO USING O2 AT 2L 06/05, PT VERIFIES PCP, PHARMACY AND REPORTS HE HAS A HCP. CM HAS REQUESTED COPY OF HCP. DISCHARGE PLAN: HOME W/RESUMPTION OF BLUE LEATHER SETTER SERVICES, PT WILL TRANSPORT SELF HCP: AALIYAH SCHMITT () [phone] ALTERNATE: [phone]
--- NOTE | 2020-12-14 11:23 | P.CONCA_ITS ---
History of Present Illness History of Present Illness Date of Service: 12/14/20 Chief complaint: Chest pain Narrative: This is a cardiology consultation regarding chest pain. Patient states that he goes to [facility]. He has a history of multiple prior PCIs and he has also had a bypass surgery. He states that after the bypass surgery from 2019, he was reasonably okay and was not getting chest pains. However, he has fractured sternal wire from CABG. For the last couple of days, he has been having intermittent chest pains, sometimes prolonged. He was also having some left arm discomfort. Additionally, he was nauseous and was throwing up. He was also feeling wheezy. This led to the hospitalization. Multiple sets of EKGs as well as troponins have been unremarkable. He still has some background chest pain. He has also received are noncardiac. Per prior documentation, he has had history of stents in his LAD, RCA and circumflex. He seems to be on long-term Brilinta. Review of Systems Review of Systems: Yes all other systems are reviewed and are negative Cardiovascular: Cardiovascular: Reports as per HPI, Reports no additional cardiovascular complaints, Denies acrocyanosis, Denies cool extremities, Denies painful fingertips, Reports chest pain, Reports chest pain at rest, Denies diaphoresis, Denies syncope, Denies irregular heart rhythm, Denies claudication, Denies leg edema, Denies lightheadedness, Denies palpitations and Denies dyspnea Respiratory: Respiratory: Denies dyspnea Neurologic: Denies syncope Endocrine: Endocrine: Denies palpitations PMFSH Past Medical History Medical History (Updated 12/14/20 @ 11:32 by Lenny Cho MD) Asthma Atherosclerotic cardiovascular disease CAD (coronary artery disease) Cancer of kidney Chronic obstructive pulmonary disease, unspecified COPD (chronic obstructive pulmonary disease) Diabetes Essential hypertension Other and unspecified hyperlipidemia Type 2 diabetes mellitus with unspecified complications Family History Family history: reviewed and not pertinent Surgical History Surgical History (Updated 12/14/20 @ 11:27 by Lenny Cho MD) History of appendectomy Hx of cholecystectomy S/P CABG x 2 Status post coronary artery bypass graft Stented coronary artery Social History Social History Household Members: Family Do you presently have visiting nurse or other home services: Yes Alcohol intake: never Smoking Status: Former smoker Use of substances other than those prescribed or required for medical reasons: No Currently Displaying Signs/Symptoms of Drug Intoxication Withdrawal: No Have you been hit, kicked, punched, or otherwise hurt by someone within the past year? If so, by whom?: No Do you feel safe in your current relationship?: Yes Is there a partner from a previous relationship who is making you feel unsafe now?: No Are you made to feel afraid or neglected: No Advance Directives: No Advance Directives Information Provided: Yes Do you have thoughts of harming others: None Do you have a plan to hurt others: No Plan Recently lost weight without trying: Unsure service: No Current occupational status: unemployed Meds Allergies Allergy/AdvReac Type Severity Reaction Status Date / Time SHELFISH Allergy Unknown Uncoded 12/31/18 00:00 TORADOL Allergy Unknown Uncoded 12/31/18 00:00 Active Medications: Current Medications Generic Name Dose Route Start Last Admin Trade Name Freq PRN Reason Stop Dose Admin Acetaminophen 650 mg 12/13/20 22:06 Acetaminophen 325 Mg Tablet PO Q6H PRN Pain, Mild (Pain Scale 1-3) Albuterol Sulfate 2 puff 12/13/20 22:09 12/14/20 00:35 Albuterol Sulfate 90 Mcg 8 Gm Inhaler INHALE 2 puff Q6H PRN Administration Shortness Of Breath Albuterol/Ipratropium 3 ml 12/14/20 04:34 12/14/20 09:51 Albuterol/Iprat 2.5/0.5mg 3 Ml Ampul.Neb INHALE 3 ml RQ4H PRN Administration Shortness of Breath/Wheezing Amitriptyline HCl 10 mg 12/14/20 21:00 Amitriptyline Hcl 10 Mg Tablet PO BEDTIME JOSE Amlodipine Besylate 10 mg 12/14/20 09:00 12/14/20 09:30 Amlodipine Besylate 10 Mg Tablet PO 10 mg DAILY JOSE Administration Protocol Aspirin 81 mg 12/14/20 09:00 12/14/20 09:30 Aspirin Enteric Coated 81 Mg Tablet. PO 81 mg DAILY JOSE Administration Atorvastatin Calcium 80 mg 12/14/20 09:00 12/14/20 09:30 Atorvastatin Calcium 80 Mg Tablet PO 80 mg DAILY JOSE Administration Clonazepam 1 mg 12/14/20 21:00 Clonazepam 1 Mg Tablet PO BEDTIME JOSE Cyclobenzaprine HCl 5 mg 12/13/20 22:09 Cyclobenzaprine Hcl 5 Mg Tablet PO TID PRN Muscle Spasm Docusate Sodium 100 mg 12/14/20 09:00 12/14/20 09:30 Docusate Sodium 100 Mg Capsule PO 100 mg BID JOSE Administration Ezetimibe 10 mg 12/14/20 09:00 12/14/20 09:30 Ezetimibe 10 Mg Tablet PO 10 mg DAILY JOSE Administration Enoxaparin Sodium 40 mg 12/13/20 23:00 12/14/20 00:12 Enoxaparin Sodium 40 Mg/0.4 Ml Syringe SUBCUT 40 mg Q24H JOSE Administration Gabapentin 300 mg 12/14/20 09:00 12/14/20 09:30 Gabapentin 300 Mg Capsule PO 300 mg BID@0900,1500 JOSE Administration Gabapentin 600 mg 12/14/20 21:00 Gabapentin 300 Mg Capsule PO BEDTIME JOSE Gemfibrozil 600 mg 12/14/20 09:00 12/14/20 09:31 Gemfibrozil 600 Mg Tablet PO 600 mg BID JOSE Administration Insulin Glargine 10 unit 12/14/20 09:00 12/14/20 09:31 Insulin Glargine,Hum.Rec.Anlog 100 Unit/Ml 10 Ml Vial SUBCUT 10 unit BID JOSE Administration Insulin Human Lispro 0 unit 12/14/20 07:30 12/14/20 08:39 Insulin Lispro 100 Unit/Ml 3 Ml Vial SUBCUT Not Given QIDACHS [facility] Protocol Isosorbide Mononitrate 30 mg 12/14/20 09:00 12/14/20 09:30 Isosorbide Mononitrate 30 Mg Tab.Er.24h PO 30 mg DAILY JOSE Administration Protocol Isosorbide Mononitrate 60 mg 12/14/20 09:00 12/14/20 09:30 Isosorbide Mononitrate 60 Mg Tab.Er.24h PO 60 mg DAILY [facility] Administration Protocol Loratadine 10 mg 12/14/20 09:00 12/14/20 09:30 Loratadine 10 Mg Tablet PO 10 mg DAILY JOSE Administration Magnesium Oxide 400 mg 12/14/20 09:00 12/14/20 09:30 Magnesium Oxide 400 Mg Tablet PO 400 mg BID JOSE Administration Metoprolol Succinate 100 mg 12/14/20 09:00 12/14/20 09:30 Metoprolol Succinate Er 100 Mg Tab.Er.24h PO 100 mg BID [facility] Administration Protocol Montelukast Sodium 10 mg 12/14/20 09:00 12/14/20 09:30 Montelukast Sodium 10 Mg Tablet PO 10 mg DAILY JOSE Administration Morphine Sulfate 1 mg 12/13/20 22:08 12/14/20 09:15 Morphine Sulfate 2 Mg/Ml Cartridge IVPUSH 1 mg Q4H PRN Administration Chest Pain Nitroglycerin 0.4 mg 12/14/20 00:01 Nitroglycerin 0.4 Mg Tab.Subl SUBLINGUAL Q5M PRN Chest Pain Nitroglycerin 0.4 mg 12/13/20 22:09 12/14/20 09:15 Nitroglycerin 0.4 Mg Tab.Subl SUBLINGUAL 0.4 mg Q5M PRN Administration Chest Pain Omeprazole 40 mg 12/14/20 06:30 12/14/20 06:04 Omeprazole 40 Mg Capsule.Dr PO 40 mg DAILY@0630 [facility] Administration Pharmacy Consult 1 each 12/13/20 18:52 Consult Rx Perform Med Rec MISCELLANE ONCE PRN Consult order Senna 17.2 mg 12/13/20 22:06 Sennosides 8.6 Mg Tablet PO BEDTIME PRN Constipation Sodium Chloride 3 ml 12/14/20 00:00 12/14/20 09:15 0.9 % Sodium Chloride Flush 3 Ml Syringe IVFLUSH 3 ml QSHIFT [facility] Administration Ticagrelor 90 mg 12/14/20 09:00 12/14/20 09:31 Ticagrelor 90 Mg Tablet PO Not Given BID [facility] Home Medications Medication Instructions Recorded Confirmed Last Taken Type acetaminophen [8 Hour Pain 650 mg PO Q8H PRN 12/13/20 12/13/20 Unknown History Reliever] albuterol sulfate 2 puff INHALATION Q6H PRN 12/13/20 12/13/20 Unknown History amitriptyline 1 tab PO BEDTIME 12/13/20 12/13/20 Unknown History amlodipine 1 tab PO DAILY 12/13/20 12/13/20 Unknown History aspirin 1 tab PO DAILY 12/13/20 12/13/20 Unknown History atorvastatin 1 tab PO DAILY 12/13/20 12/13/20 Unknown History cetirizine 1 tab PO DAILY 12/13/20 12/13/20 Unknown History clonazepam 1 tab PO BEDTIME 12/13/20 12/13/20 Unknown History cyclobenzaprine 1 tab PO TID PRN 12/13/20 12/13/20 Unknown History docusate sodium [DOK] 1 cap PO BID 12/13/20 12/13/20 Unknown History empagliflozin [Jardiance] 1 tab PO DAILY 12/13/20 12/13/20 Unknown History ezetimibe 1 tab PO DAILY 12/13/20 12/13/20 Unknown History gabapentin 300 mg PO BID@0900,1500 12/13/20 12/13/20 Unknown History gabapentin 600 mg PO BEDTIME 12/13/20 12/13/20 Unknown History gemfibrozil 600 mg PO BID 12/13/20 12/13/20 Unknown History insulin glargine [Lantus Solostar 10 unit SUBCUT BID 12/13/20 12/13/20 Unknown History U-100 Insulin] isosorbide mononitrate 1 tab PO DAILY 12/13/20 12/13/20 Unknown History isosorbide mononitrate 1 tab PO DAILY 12/13/20 12/13/20 Unknown History ketoconazole 1 appl TOPICAL DAILY 12/13/20 12/13/20 Unknown History magnesium oxide 1 tab PO BID 12/13/20 12/13/20 Unknown History metformin 1 tab PO BID 12/13/20 12/13/20 Unknown History metoprolol succinate 100 mg PO BID 12/13/20 12/13/20 Unknown History montelukast 1 tab PO DAILY 12/13/20 12/13/20 Unknown History nitroglycerin 0.4 mg SUBLINGUAL Q5M PRN 12/13/20 12/13/20 Unknown History omeprazole 1 cap PO DAILY 12/13/20 12/13/20 Unknown History oxycodone 1 tab PO Q8H PRN 12/13/20 12/13/20 Unknown History sennosides [senna] 2 tab PO DAILY 12/13/20 12/13/20 Unknown History ticagrelor [Brilinta] 1 tab PO BID 12/13/20 12/13/20 Unknown History umeclidinium [Incruse Ellipta] 1 inh INHALATION DAILY 12/13/20 12/13/20 Unknown History varenicline [Chantix] 1 tab PO BID 12/13/20 12/13/20 Unknown History Physical Exam Vital Signs: Vital Signs: Last Vital Signs Temp 97.7 F 12/14/20 11:15 Pulse 70 12/14/20 11:15 Resp 16 12/14/20 11:16 BP 135/89 12/14/20 11:15 Pulse Ox 95 12/14/20 11:15 Body Mass Index 37.6 Const: General: cooperative, comfortable and no acute distress Orientation/consciousness: patient oriented x3 HENMT: Other: Unremarkable Neck: Neck: Yes normal visual inspection Chest: Chest palpation & inspection: normal inspection of the chest Resp: Auscultation: clear to auscultation bilaterally, no crackles and wheezes Cardio: Jugular venous distension: no JVD Palpation: normal PMI Heart sounds: S1 normal heart sound present, S2 normal heart sound present, no gallops, no murmurs and no rubs GI: Palpation (GI): Soft to palpation Back/Spine/Pelvis: Other: unremarkable Skin: General skin exam: no rashes or lesions noted Neuro: General: patient oriented x3 Extrem: General: Yes no clubbing, cyanosis or edema Psych: Mental Status: mental status grossly normal Results Labs and Meds Result diagrams: 12/14/20 05:28 12/14/20 05:28 Lab results: Laboratory Results - last 24 hr 12/13/20 12/13/20 12/13/20 18:50 18:52 18:52 WBC 6.5 RBC 6.06 H Hgb 13.5 L Hct 43.4 MCV 71.6 L MCH 22.3 L MCHC 31.1 RDW 17.6 H Plt Count 371 MPV 9.6 Immature Gran % (Auto) 0.5 H Neut % (Auto) 50.0 Lymph % (Auto) 37.5 [place] % (Auto) 9.6 Eos % (Auto) 2.1 Baso % (Auto) 0.3 Lymph # (Auto) 2.5 [place] # (Auto) 0.6 Eos # (Auto) 0.1 Baso # (Auto) 0.0 Abs Immat Gran (auto) 0.03 Absolute Neuts (auto) 3.3 Absolute Nucleated RBC 0.000 Nucleated RBC % (auto) 0.0 PT 11.6 INR 1.0 APTT 36.8 D-Dimer TNP Sodium Potassium Chloride Carbon Dioxide Anion Gap BUN Creatinine Estim Creat Clear Calc Estimated GFR POC Glucose 160 H Random Glucose Calcium Magnesium Total Bilirubin Direct Bilirubin AST ALT Alkaline Phosphatase Troponin I High Sens B-Natriuretic Peptide Total Protein Albumin Lipase Coronavirus (PCR) Influenza Type A (PCR) Influenza Type B (PCR) RSV RNA Qual (PCR) 12/13/20 12/13/20 12/13/20 18:52 18:52 20:09 WBC RBC Hgb Hct MCV MCH MCHC RDW Plt Count MPV Immature Gran % (Auto) Neut % (Auto) Lymph % (Auto) [place] % (Auto) Eos % (Auto) Baso % (Auto) Lymph # (Auto) [place] # (Auto) Eos # (Auto) Baso # (Auto) Abs Immat Gran (auto) Absolute Neuts (auto) Absolute Nucleated RBC Nucleated RBC % (auto) PT INR APTT D-Dimer Sodium 140 Potassium 4.9 Chloride 105 Carbon Dioxide 22 Anion Gap 18 BUN 21 H Creatinine 1.30 Estim Creat Clear Calc 89.4 Estimated GFR 59 POC Glucose Random Glucose 155 H Calcium 10.3 H Magnesium 2.0 Total Bilirubin 0.5 Direct Bilirubin < 0.2 AST 16 ALT 21 Alkaline Phosphatase 88 Troponin I High Sens 4.6 B-Natriuretic Peptide 16 Total Protein 8.6 H Albumin 4.8 Lipase 56 Coronavirus (PCR) NEGATIVE Influenza Type A (PCR) NEGATIVE Influenza Type B (PCR) NEGATIVE RSV RNA Qual (PCR) NEGATIVE 12/13/20 12/14/20 12/14/20 21:16 00:19 05:28 WBC 5.9 RBC 5.29 Hgb 11.6 L Hct 37.8 L MCV 71.5 L MCH 21.9 L MCHC 30.7 L RDW 16.8 H Plt Count 291 MPV 9.8 Immature Gran % (Auto) 0.3 Neut % (Auto) 41.9 L Lymph % (Auto) 44.0 H [place] % (Auto) 11.6 H Eos % (Auto) 2.0 Baso % (Auto) 0.2 Lymph # (Auto) 2.6 [place] # (Auto) 0.7 Eos # (Auto) 0.1 Baso # (Auto) 0.0 Abs Immat Gran (auto) 0.02 Absolute Neuts (auto) 2.5 Absolute Nucleated RBC 0.000 Nucleated RBC % (auto) 0.0 PT INR APTT D-Dimer < 200 Sodium Potassium Chloride Carbon Dioxide Anion Gap BUN Creatinine Estim Creat Clear Calc Estimated GFR POC Glucose Random Glucose Calcium Magnesium Total Bilirubin Direct Bilirubin AST ALT Alkaline Phosphatase Troponin I High Sens 4.5 B-Natriuretic Peptide Total Protein Albumin Lipase Coronavirus (PCR) Influenza Type A (PCR) Influenza Type B (PCR) RSV RNA Qual (PCR) 12/14/20 12/14/20 05:28 07:20 WBC RBC Hgb Hct MCV MCH MCHC RDW Plt Count MPV Immature Gran % (Auto) Neut % (Auto) Lymph % (Auto) [place] % (Auto) Eos % (Auto) Baso % (Auto) Lymph # (Auto) [place] # (Auto) Eos # (Auto) Baso # (Auto) Abs Immat Gran (auto) Absolute Neuts (auto) Absolute Nucleated RBC Nucleated RBC % (auto) PT INR APTT D-Dimer Sodium 138 Potassium 4.3 Chloride 104 Carbon Dioxide 22 Anion Gap 16 BUN 21 H Creatinine 1.13 Estim Creat Clear Calc 105.2 Estimated GFR > 60 POC Glucose 147 H Random Glucose 183 H Calcium 9.2 D Magnesium 1.8 Total Bilirubin Direct Bilirubin AST ALT Alkaline Phosphatase Troponin I High Sens B-Natriuretic Peptide Total Protein Albumin Lipase Coronavirus (PCR) Influenza Type A (PCR) Influenza Type B (PCR) RSV RNA Qual (PCR) ECG Attestation: I personally reviewed and interpreted this ECG as follows: Interpretation: Multiple admission EKG shows sinus rhythm without any acute ST-T changes. Imaging Radiologist's impression: Impressions Chest X-Ray 12/13/20 18:47 IMPRESSION: No acute intrathoracic disease. Assessment and Plan (1) Precordial chest pain: Status: Acute (2) Atherosclerotic cardiovascular disease: Status: Acute (3) Status post coronary artery bypass graft: Status: Acute (4) Stented coronary artery: Status: Acute (5) Type 2 diabetes mellitus with unspecified complications: Status: Acute (6) Essential hypertension: Status: Acute (7) Other and unspecified hyperlipidemia: Status: Acute (8) Chronic obstructive pulmonary disease, unspecified: Qualifiers: COPD type: unspecified COPD Qualified Code(s): J44.9 - Chronic obstructive pulmonary disease, unspecified Status: Acute (9) SANDEE (obstructive sleep apnea): Status: Acute He does have a history of coronary disease prior PCI, bypass and risk factors but this chest discomfort seems highly atypical. Additionally, multiple sets of EKGs as well as troponins are not suggesting anything acutely cardiac. Additionally, he also sounds wheezy bilaterally. Hence do not believe this is acute coronary syndrome. Can try to treat for COPD and see if he feels better. Otherwise will hold off on any stress testing. Procedures Date of Service Date of Service: 12/14/20
[2020-12-14 11:38] LABS: Glucose, Whole Blood 189 mg/dL (60-115)
[2020-12-14] MEDS: Insulin Lispro 100 UNIT/ML 3 ML VIAL SUBCUT ×2 (11:49→16:43)
--- NOTE | 2020-12-14 13:33 | PC.NURSE ---
Addendum entered by Yanira Marrero RN 12/14/20 13:42: additional dose of 0.4 mg nitroglycerin administered with pending effect Original Note: pt again c/o 7/10 midsternal c/p radiating down left arm and states his left hand feels numb. PRN morhine 1 mg and 0/4 mg nitroglycerin given. b/p 153/74 and HR 77 at this time. hospitalist and laborer driver aware. EKG and troponin ordered.
--- NOTE | 2020-12-14 13:34 | ECG_ITS ---
Test Reason : CHEST PAIN Blood Pressure : / mmHG Vent. Rate : 079 BPM Atrial Rate : 079 BPM P-R Int : 154 ms QRS Dur : 100 ms QT Int : 380 ms P-R-T Axes : 035 033 044 degrees QTc Int : 435 ms Normal sinus rhythm Normal ECG When compared with ECG of 14-DEC-2020 08:28, No significant change was found Referred By: Jacobo Smith Electronically Signed By:RANCHO GODWIN
--- NOTE | 2020-12-14 13:37 | P.PNIM_ITS ---
Subjective Subjective Date of Service: 12/14/20 Interval History: patient seen and examined at bedside patient was still reporting chest pain palpable Review of Systems Constitutional: No Weight loss, No Fever, No Chills, No Night Sweats, No Fatigue, No Malaise ENT/Mouth: No Hearing loss, No Ear Pain, No Nasal Congestion, No Sinus Pain, No Hoarseness, No sore throat, No Rhinorrhea, No Swallowing Difficulty Eyes: No Eye Pain, No Swelling, No Redness, No Foreign Body, No Discharge, No Vision Changes Cardiovascular: Positive substernal Chest Pain, no SOB, no Dyspnea on Exertion, No Orthopnea, No Edema, No Palpitations Respiratory: No Cough, No Sputum, No Wheezing, No Smoke Exposure, No Dyspnea Gastrointestinal: No Nausea, No Vomiting, No Diarrhea, No abdominal Pain, No Hematochezia, No Melena Genitourinary: No irregular bleeding, No Dysuria, No Urinary Frequency, No Hematuria, No Urinary Incontinence, No Urgency, No Flank Pain, No Urinary Flow Changes, No Hesitancy Musculoskeletal: No joint pain, No Myalgias, No Joint Swelling Skin: No Skin Lesions, No rash Neuro: No Weakness, No Numbness, No Paresthesias, No Loss of Consciousness, No Dizziness, No Headache Psych: No Anxiety/Panic, No Depression, No SI/HI/AH/VH Heme/Lymph: No Bruising, No Bleeding,No Lymphadenopathy Endocrine: No Polyuria, No Polydipsia, No Temperature Intolerance Cardiovascular Cardiovascular: Reports as per HPI, Reports no additional cardiovascular complaints, Denies acrocyanosis, Denies cool extremities, Denies painful fingertips, Reports chest pain, Reports chest pain at rest, Denies diaphoresis, Denies syncope, Denies irregular heart rhythm, Denies claudication, Denies leg edema, Denies lightheadedness, Denies palpitations and Denies dyspnea Respiratory Respiratory: Denies dyspnea Neurologic Neurologic: Denies syncope Endocrine Endocrine: Denies palpitations Physical Exam Vital Signs: Vital Signs: Last Vital Signs Temp 97.7 F 12/14/20 11:15 Pulse 77 12/14/20 13:31 Resp 18 12/14/20 13:30 BP 153/74 H 12/14/20 13:31 Pulse Ox 94 12/14/20 13:24 Body Mass Index 37.6 Const: General: cooperative, comfortable and no acute distress Orientation/consciousness: patient oriented x3 HENMT: Other: Unremarkable Neck: Neck: Yes normal visual inspection Chest: Chest palpation & inspection: normal inspection of the chest Resp: Auscultation: wheezes Cardio: Jugular venous distension: no JVD Palpation: normal PMI Heart sounds: S1 normal heart sound present, S2 normal heart sound present, no gallops, no murmurs and no rubs GI: Palpation (GI): Soft to palpation Back/Spine/Pelvis: Other: unremarkable Skin: General skin exam: no rashes or lesions noted Neuro: General: patient oriented x3 Extrem: General: Yes no clubbing, cyanosis or edema Psych: Mental Status: mental status grossly normal Objective Data Current Medications Generic Name Dose Route Start Last Admin Trade Name Freq PRN Reason Stop Dose Admin Acetaminophen 650 mg 12/13/20 22:06 Acetaminophen 325 Mg Tablet PO Q6H PRN Pain, Mild (Pain Scale 1-3) Albuterol Sulfate 2 puff 12/13/20 22:09 12/14/20 00:35 Albuterol Sulfate 90 Mcg 8 Gm Inhaler INHALE 2 puff Q6H PRN Administration Shortness Of Breath Albuterol/Ipratropium 3 ml 12/14/20 04:34 12/14/20 09:51 Albuterol/Iprat 2.5/0.5mg 3 Ml Ampul.Neb INHALE 3 ml RQ4H PRN Administration Shortness of Breath/Wheezing Amitriptyline HCl 10 mg 12/14/20 21:00 Amitriptyline Hcl 10 Mg Tablet PO BEDTIME JOSE Amlodipine Besylate 10 mg 12/14/20 09:00 12/14/20 09:30 Amlodipine Besylate 10 Mg Tablet PO 10 mg DAILY JOSE Administration Protocol Aspirin 81 mg 12/14/20 09:00 12/14/20 09:30 Aspirin Enteric Coated 81 Mg Tablet.Dr PO 81 mg DAILY JOSE Administration Atorvastatin Calcium 80 mg 12/14/20 09:00 12/14/20 09:30 Atorvastatin Calcium 80 Mg Tablet PO 80 mg DAILY OJSE Administration Clonazepam 1 mg 12/14/20 21:00 Clonazepam 1 Mg Tablet PO BEDTIME JOSE Cyclobenzaprine HCl 5 mg 12/13/20 22:09 Cyclobenzaprine Hcl 5 Mg Tablet PO TID PRN Muscle Spasm Docusate Sodium 100 mg 12/14/20 09:00 12/14/20 09:30 Docusate Sodium 100 Mg Capsule PO 100 mg BID JOSE Administration Ezetimibe 10 mg 12/14/20 09:00 12/14/20 09:30 Ezetimibe 10 Mg Tablet PO 10 mg DAILY JOSE Administration Enoxaparin Sodium 40 mg 12/13/20 23:00 12/14/20 00:12 Enoxaparin Sodium 40 Mg/0.4 Ml Syringe SUBCUT 40 mg Q24H JOSE Administration Gabapentin 300 mg 12/14/20 09:00 12/14/20 09:30 Gabapentin 300 Mg Capsule PO 300 mg BID@0900,1500 JOSE Administration Gabapentin 600 mg 12/14/20 21:00 Gabapentin 300 Mg Capsule PO BEDTIME JOSE Gemfibrozil 600 mg 12/14/20 09:00 12/14/20 09:31 Gemfibrozil 600 Mg Tablet PO 600 mg BID JOSE Administration Insulin Glargine 10 unit 12/14/20 09:00 12/14/20 09:31 Insulin Glargine,Hum.Rec.Anlog 100 Unit/Ml 10 Ml Vial SUBCUT 10 unit BID JOSE Administration Insulin Human Lispro 0 unit 12/14/20 07:30 12/14/20 11:49 Insulin Lispro 100 Unit/Ml 3 Ml Vial SUBCUT 2 unit QIDACHS [facility] Administration Protocol Isosorbide Mononitrate 30 mg 12/14/20 09:00 12/14/20 09:30 Isosorbide Mononitrate 30 Mg Tab.Er.24h PO 30 mg DAILY JOSE Administration Protocol Isosorbide Mononitrate 60 mg 12/14/20 09:00 12/14/20 09:30 Isosorbide Mononitrate 60 Mg Tab.Er.24h PO 60 mg DAILY JOSE Administration Protocol Loratadine 10 mg 12/14/20 09:00 12/14/20 09:30 Loratadine 10 Mg Tablet PO 10 mg DAILY JOSE Administration Magnesium Oxide 400 mg 12/14/20 09:00 12/14/20 09:30 Magnesium Oxide 400 Mg Tablet PO 400 mg BID JOSE Administration Metoprolol Succinate 100 mg 12/14/20 09:00 12/14/20 09:30 Metoprolol Succinate Er 100 Mg Tab.Er.24h PO 100 mg BID JOSE Administration Protocol Montelukast Sodium 10 mg 12/14/20 09:00 12/14/20 09:30 Montelukast Sodium 10 Mg Tablet PO 10 mg DAILY [facility] Administration Morphine Sulfate 1 mg 12/13/20 22:08 12/14/20 13:30 Morphine Sulfate 2 Mg/Ml Cartridge IVPUSH 1 mg Q4H PRN Administration Chest Pain Nitroglycerin 0.4 mg 12/14/20 00:01 12/14/20 13:31 Nitroglycerin 0.4 Mg Tab.Subl SUBLINGUAL 0.4 mg Q5M PRN Administration Chest Pain Nitroglycerin 0.4 mg 12/13/20 22:09 12/14/20 09:15 Nitroglycerin 0.4 Mg Tab.Subl SUBLINGUAL 0.4 mg Q5M PRN Administration Chest Pain Omeprazole 40 mg 12/14/20 06:30 12/14/20 06:04 Omeprazole 40 Mg Capsule. PO 40 mg DAILY@0630 [facility] Administration Pharmacy Consult 1 each 12/13/20 18:52 Consult Rx Perform Med Rec MISCELLANE ONCE PRN Consult order Prednisone 20 mg 12/14/20 12:50 Prednisone 20 Mg Tablet PO DAILY [facility] Senna 17.2 mg 12/13/20 22:06 Sennosides 8.6 Mg Tablet PO BEDTIME PRN Constipation Sodium Chloride 3 ml 12/14/20 00:00 12/14/20 09:15 0.9 % Sodium Chloride Flush 3 Ml Syringe IVFLUSH 3 ml QSHIFT [facility] Administration Ticagrelor 90 mg 12/14/20 09:00 12/14/20 09:31 Ticagrelor 90 Mg Tablet PO Not Given BID [facility] Labs CBC & Chem 7: 12/14/20 05:28 12/14/20 05:28 Assessment and Plan (1) Chest pain: Status: Acute Assessment and Plan: 50-year-old male with a past medical history of hypertension, hyperlipidemia, diabetes, asthma/COPD on home oxygen, SANDEE, history of renal cell carcinoma status post right nephrectomy, CAD status post 9 stents and CABG presented with chest pain. COPD exacerbation still has wheezing continue nebulizer oxygen supplementation as needed continue steroids Chest pain likely atypical still complaining of pain high sensitivity troponin x3 negative EKG remains unchanged Currently improved. EKG nonischemic. Troponins x2 negative. seen by Cardiology reconciled chest pain likely atypical given troponin negative and EKG no change continue Imdur continue pain manage D-dimer less than 200 PE unlikely History of CAD: Continue home medications. Diabetes: continue Insulin sliding scale. DVT prophylaxis: Lovenox Code status: Full code
[2020-12-14] MEDS: predniSONE 20 MG TABLET PO (13:39)
[2020-12-14] MEDS: Acetaminophen 325 MG TABLET 650 MG PO (14:09)
[2020-12-14 14:45] LABS: Troponin-I High Sensitivity 4.2 ng/L (<3.5-35.0)
--- NOTE | 2020-12-14 16:11 | PM.DS ---
DS: Providers Provider Date of Service: 12/15/20 Date of admission: 12/13/20 22:06 Primary care physician: Tari Weston NP Consults: 12/13/20 22:06 Consult to Cardiology Routine Consulting Provider: Lenny Cho Reason for consultation: chest pain DS: Diagnosis Discharge Diagnosis (1) Chest pain: Status: Acute (2) COPD exacerbation: Status: Acute DS: Medications Discharge Medications Home Medications: Home Medications Medication Instructions Recorded Confirmed Brilinta 1 tab PO BID 12/13/20 12/13/20 Chantix 1 tab PO BID 12/13/20 12/13/20 Incruse Ellipta 1 inh INHALATION DAILY 12/13/20 12/13/20 Jardiance 1 tab PO DAILY 12/13/20 12/13/20 Lantus Solostar U-100 Insulin 10 unit SUBCUT BID 12/13/20 12/13/20 acetaminophen [8 Hour Pain 650 mg PO Q8H PRN 12/13/20 12/13/20 Reliever] albuterol sulfate 2 puff INHALATION Q6H PRN 12/13/20 12/13/20 amitriptyline 1 tab PO BEDTIME 12/13/20 12/13/20 amlodipine 1 tab PO DAILY 12/13/20 12/13/20 aspirin 1 tab PO DAILY 12/13/20 12/13/20 atorvastatin 1 tab PO DAILY 12/13/20 12/13/20 cetirizine 1 tab PO DAILY 12/13/20 12/13/20 clonazepam 1 tab PO BEDTIME 12/13/20 12/13/20 cyclobenzaprine 1 tab PO TID PRN 12/13/20 12/13/20 docusate sodium [DOK] 1 cap PO BID 12/13/20 12/13/20 ezetimibe 1 tab PO DAILY 12/13/20 12/13/20 gabapentin 300 mg PO BID@0900,1500 12/13/20 12/13/20 gabapentin 600 mg PO BEDTIME 12/13/20 12/13/20 gemfibrozil 600 mg PO BID 12/13/20 12/13/20 isosorbide mononitrate 1 tab PO DAILY 12/13/20 12/13/20 isosorbide mononitrate 1 tab PO DAILY 12/13/20 12/13/20 ketoconazole 1 appl TOPICAL DAILY 12/13/20 12/13/20 magnesium oxide 1 tab PO BID 12/13/20 12/13/20 metformin 1 tab PO BID 12/13/20 12/13/20 metoprolol succinate 100 mg PO BID 12/13/20 12/13/20 montelukast 1 tab PO DAILY 12/13/20 12/13/20 nitroglycerin 0.4 mg SUBLINGUAL Q5M PRN 12/13/20 12/13/20 omeprazole 1 cap PO DAILY 12/13/20 12/13/20 oxycodone 1 tab PO Q8H PRN 12/13/20 12/13/20 sennosides [senna] 2 tab PO DAILY 12/13/20 12/13/20 DS: Summary Hospital Course Hospital Course: 50-year-old male with known history of CAD status post stent admitted with chest pain, high sensitivity troponin remains negative, patient was monitored on telemetry, cardiology was consulted, given multiple high sensitivity troponin remains negative and EKG shows no acute change, cardiology reconciled ACS less likely reconciled likely atypical chest pain, patient was also treated for mild COPD exacerbation with nebulizer and steroid, patient's breathing improved, chest pain was improving, patient was cleared by Cardiology, patient was stable discharged home patient will follow-up with cardiology as outpatient. Time Spent with Patient Time attestation: Total time spent providing and/or coordinating discharge services: Discharge coordination time: Greater than 30 minutes Physical Exam Vital Signs: Vital Signs: Last Vital Signs Temp 97.3 F 12/14/20 14:59 Pulse 70 12/14/20 14:59 Resp 18 12/14/20 14:59 BP 110/85 12/14/20 14:59 Pulse Ox 96 12/14/20 14:59 Body Mass Index 37.6 DS: Data Data Completed and Pending Labs on day of discharge: Laboratory Results - last 24 hr 12/13/20 12/13/20 12/13/20 18:50 18:52 18:52 WBC 6.5 RBC 6.06 H Hgb 13.5 L Hct 43.4 MCV 71.6 L MCH 22.3 L MCHC 31.1 RDW 17.6 H Plt Count 371 MPV 9.6 Immature Gran % (Auto) 0.5 H Neut % (Auto) 50.0 Lymph % (Auto) 37.5 [place] % (Auto) 9.6 Eos % (Auto) 2.1 Baso % (Auto) 0.3 Lymph # (Auto) 2.5 [place] # (Auto) 0.6 Eos # (Auto) 0.1 Baso # (Auto) 0.0 Abs Immat Gran (auto) 0.03 Absolute Neuts (auto) 3.3 Absolute Nucleated RBC 0.000 Nucleated RBC % (auto) 0.0 PT 11.6 INR 1.0 APTT 36.8 D-Dimer TNP Sodium Potassium Chloride Carbon Dioxide Anion Gap BUN Creatinine Estim Creat Clear Calc Estimated GFR POC Glucose 160 H Random Glucose Calcium Magnesium Total Bilirubin Direct Bilirubin AST ALT Alkaline Phosphatase Troponin I High Sens B-Natriuretic Peptide Total Protein Albumin Lipase Coronavirus (PCR) Influenza Type A (PCR) Influenza Type B (PCR) RSV RNA Qual (PCR) 12/13/20 12/13/20 12/13/20 18:52 18:52 20:09 WBC RBC Hgb Hct MCV MCH MCHC RDW Plt Count MPV Immature Gran % (Auto) Neut % (Auto) Lymph % (Auto) [place] % (Auto) Eos % (Auto) Baso % (Auto) Lymph # (Auto) [place] # (Auto) Eos # (Auto) Baso # (Auto) Abs Immat Gran (auto) Absolute Neuts (auto) Absolute Nucleated RBC Nucleated RBC % (auto) PT INR APTT D-Dimer Sodium 140 Potassium 4.9 Chloride 105 Carbon Dioxide 22 Anion Gap 18 BUN 21 H Creatinine 1.30 Estim Creat Clear Calc 89.4 Estimated GFR 59 POC Glucose Random Glucose 155 H Calcium 10.3 H Magnesium 2.0 Total Bilirubin 0.5 Direct Bilirubin < 0.2 AST 16 ALT 21 Alkaline Phosphatase 88 Troponin I High Sens 4.6 B-Natriuretic Peptide 16 Total Protein 8.6 H Albumin 4.8 Lipase 56 Coronavirus (PCR) NEGATIVE Influenza Type A (PCR) NEGATIVE Influenza Type B (PCR) NEGATIVE RSV RNA Qual (PCR) NEGATIVE 12/13/20 12/14/20 12/14/20 21:16 00:19 05:28 WBC 5.9 RBC 5.29 Hgb 11.6 L Hct 37.8 L MCV 71.5 L MCH 21.9 L MCHC 30.7 L RDW 16.8 H Plt Count 291 MPV 9.8 Immature Gran % (Auto) 0.3 Neut % (Auto) 41.9 L Lymph % (Auto) 44.0 H [place] % (Auto) 11.6 H Eos % (Auto) 2.0 Baso % (Auto) 0.2 Lymph # (Auto) 2.6 [place] # (Auto) 0.7 Eos # (Auto) 0.1 Baso # (Auto) 0.0 Abs Immat Gran (auto) 0.02 Absolute Neuts (auto) 2.5 Absolute Nucleated RBC 0.000 Nucleated RBC % (auto) 0.0 PT INR APTT D-Dimer < 200 Sodium Potassium Chloride Carbon Dioxide Anion Gap BUN Creatinine Estim Creat Clear Calc Estimated GFR POC Glucose Random Glucose Calcium Magnesium Total Bilirubin Direct Bilirubin AST ALT Alkaline Phosphatase Troponin I High Sens 4.5 B-Natriuretic Peptide Total Protein Albumin Lipase Coronavirus (PCR) Influenza Type A (PCR) Influenza Type B (PCR) RSV RNA Qual (PCR) 12/14/20 12/14/20 12/14/20 05:28 07:20 11:13 WBC RBC Hgb Hct MCV MCH MCHC RDW Plt Count MPV Immature Gran % (Auto) Neut % (Auto) Lymph % (Auto) [place] % (Auto) Eos % (Auto) Baso % (Auto) Lymph # (Auto) [place] # (Auto) Eos # (Auto) Baso # (Auto) Abs Immat Gran (auto) Absolute Neuts (auto) Absolute Nucleated RBC Nucleated RBC % (auto) PT INR APTT D-Dimer Sodium 138 Potassium 4.3 Chloride 104 Carbon Dioxide 22 Anion Gap 16 BUN 21 H Creatinine 1.13 Estim Creat Clear Calc 105.2 Estimated GFR > 60 POC Glucose 147 H 189 H Random Glucose 183 H Calcium 9.2 D Magnesium 1.8 Total Bilirubin Direct Bilirubin AST ALT Alkaline Phosphatase Troponin I High Sens B-Natriuretic Peptide Total Protein Albumin Lipase Coronavirus (PCR) Influenza Type A (PCR) Influenza Type B (PCR) RSV RNA Qual (PCR) 12/14/20 13:41 WBC RBC Hgb Hct MCV MCH MCHC RDW Plt Count MPV Immature Gran % (Auto) Neut % (Auto) Lymph % (Auto) [place] % (Auto) Eos % (Auto) Baso % (Auto) Lymph # (Auto) [place] # (Auto) Eos # (Auto) Baso # (Auto) Abs Immat Gran (auto) Absolute Neuts (auto) Absolute Nucleated RBC Nucleated RBC % (auto) PT INR APTT D-Dimer Sodium Potassium Chloride Carbon Dioxide Anion Gap BUN Creatinine Estim Creat Clear Calc Estimated GFR POC Glucose Random Glucose Calcium Magnesium Total Bilirubin Direct Bilirubin AST ALT Alkaline Phosphatase Troponin I High Sens 4.2 B-Natriuretic Peptide Total Protein Albumin Lipase Coronavirus (PCR) Influenza Type A (PCR) Influenza Type B (PCR) RSV RNA Qual (PCR) Discharge Plan Discharge Anticipated Discharge Date/Time: 12/14/20 16:04 Patient Disposition: Home, Self-Care Referrals: Tari Weston, [employer] [Primary Care Provider] - Discharge Medications: Continued atorvastatin 80 mg tablet 1 tab PO DAILY RF: 0 sennosides [senna] 8.6 mg tablet 2 tab PO DAILY RF: 0 cetirizine 10 mg tablet 1 tab PO DAILY RF: 0 isosorbide mononitrate 30 mg tablet extended release 24 hr 1 tab PO DAILY RF: 0 metoprolol succinate 100 mg tablet extended release 24 hr 100 mg PO BID RF: 0 clonazepam 1 mg tablet 1 tab PO BEDTIME RF: 0 omeprazole 40 mg capsule,delayed release(DR/EC) 1 cap PO DAILY RF: 0 aspirin 81 mg tablet,delayed release (DR/EC) 1 tab PO DAILY RF: 0 acetaminophen [8 Hour Pain Reliever] 650 mg tablet extended release 650 mg PO Q8H PRN (Reason: Pain) RF: 0 isosorbide mononitrate 60 mg tablet extended release 24 hr 1 tab PO DAILY RF: 0 magnesium oxide 400 mg (241.3 mg magnesium) tablet 1 tab PO BID RF: 0 amitriptyline 10 mg tablet 1 tab PO BEDTIME RF: 0 amlodipine 10 mg tablet 1 tab PO DAILY RF: 0 gemfibrozil 600 mg tablet 600 mg PO BID RF: 0 metformin 1,000 mg tablet 1 tab PO BID RF: 0 nitroglycerin 0.4 mg tablet, sublingual 0.4 mg sublingual Q5M PRN (Reason: Chest Pain) RF: 0 docusate sodium [DOK] 100 mg capsule 1 cap PO BID RF: 0 gabapentin 300 mg capsule 300 mg PO BID@0900,1500 RF: 0 montelukast 10 mg tablet 1 tab PO DAILY RF: 0 albuterol sulfate 90 mcg/actuation HFA aerosol inhaler 2 puff inhalation Q6H PRN (Reason: Shortness Of Breath) RF: 0 ketoconazole 2 % cream 1 appl topical DAILY RF: 0 ezetimibe 10 mg tablet 1 tab PO DAILY RF: 0 cyclobenzaprine 5 mg tablet 1 tab PO TID PRN (Reason: Muscle Spasm) RF: 0 Chantix 1 mg tablet 1 tab PO BID RF: 0 Lantus Solostar U-100 Insulin 100 unit/mL (3 mL) insulin pen 10 unit subcut BID RF: 0 oxycodone 10 mg tablet 1 tab PO Q8H PRN (Reason: Pain (Scale Score 4-6)) RF: 0 Brilinta 90 mg tablet 1 tab PO BID RF: 0 Incruse Ellipta 62.5 mcg/actuation blister with device 1 inh inhalation DAILY RF: 0 Jardiance 10 mg tablet 1 tab PO DAILY RF: 0 gabapentin 300 mg capsule 600 mg PO BEDTIME RF: 0 Discharge Orders: Discharge Order (Routine); Ordered 12/14/20 Ordered By: Jacobo Smith Diet: advance to usual diet Activity on Discharge: As tolerated Stand Alone Forms: Patient Portal Discharge page Health Concerns: see above Plan of Treatment: see above Discharge Date/Time: 12/14/20 17:10
[2020-12-14 16:25] LABS: Glucose, Whole Blood 188 mg/dL (60-115)
== END 2020-12-14 17:10 | disposition home or self-care (01) | DRG 191 ==
LOC: HO.ED 22:21 → HO.EDOVER 22:22 → HO.S3 22:36
PROVIDERS: Nurse Practitioner Family; Admitting Provider Hospitalist; Emergency Provider Emergency Medicine; PCP Registered Nurse; Visit Provider Internal Medicine
DX: J44.1 Chronic obstructive pulmonary disease with (acute) exacerbation (principal); J96.10 Chronic respiratory failure, unspecified whether with hypoxia or hypercapnia; I25.10 Atherosclerotic heart disease of native coronary artery without angina pectoris; Z99.81 Dependence on supplemental oxygen; R07.89 Other chest pain; G47.33 Obstructive sleep apnea (adult) (pediatric); Z91.19 Patient's noncompliance with other medical treatment and regimen; Z87.891 Personal history of nicotine dependence; E78.5 Hyperlipidemia, unspecified; Z20.822 Contact with and (suspected) exposure to COVID-19; Z95.1 Presence of aortocoronary bypass graft; Z79.4 Long term (current) use of insulin; Z79.82 Long term (current) use of aspirin; Z79.891 Long term (current) use of opiate analgesic; Z79.899 Other long term (current) drug therapy
CPT/HCPCS: 0241U; 36415; 71045; 80048; 80076; 82947; 83690; 83735; 83880; 84484; 85025; 85379; 85610; 85730; 93005; 94640; 96374; 96375; 96376; 99285; J1650; J2270; J2405; J3010

== ENCOUNTER 2021-06-29 00:46 | Emergency (ER) | payer OTHER, SELFPAY ==
--- NOTE | 2021-06-29 | ECG_ITS ---
Test Reason : CHEST PAIN/ARM PAIN Blood Pressure : / mmHG Vent. Rate : 093 BPM Atrial Rate : 093 BPM P-R Int : 118 ms QRS Dur : 104 ms QT Int : 372 ms P-R-T Axes : -18 027 035 degrees QTc Int : 462 ms Normal sinus rhythm Inferior infarct , age undetermined Abnormal ECG When compared with ECG of 14-DEC-2020 13:45, No significant change was found Referred By: Vu Villela Electronically Signed By:UMBERTO PADRON
--- NOTE | ~2021-06-29 | XR_ITS ---
EXAMINATION: XR CHEST CLINICAL INFORMATION: Chest pain COMPARISON: 12/13/2020 TECHNIQUE: Frontal view of the chest was obtained. FINDINGS: Lung volumes are symmetric. No focal consolidation is seen. No evidence of pneumothorax, pleural effusion, or pulmonary edema. The cardiomediastinal contour is unremarkable. Sternal wires are present. No acute osseous findings are seen. XR/XR chest 1V IMPRESSION: No acute cardiopulmonary findings.
[2021-06-29 01:10] VITALS: BP 146/111; PULSE 98; RESP 18; TEMP 36; O2SAT 96; BMI 35.5
--- NOTE | 2021-06-29 01:33 | ED.CHESTPAIN ---
HPI - Chest Pain General Chief Complaint: Chest Pain Stated Complaint: chest pain/arm pain Time Seen by Provider: 06/29/21 01:33 Source: patient Mode of arrival: ambulatory Limitations: no limitations History of Present Illness HPI narrative: Patient is 51 years old with history of coronary disease status post 9 PCI prior to cardiac bypass surgery 2 vessels in 2019 had broken sternal wire. Apparently patient was doing well since 01/01 around 16:00 noticed left-sided chest pain similar to that when he had a heart attack going to the left arm pain is continues patient took 4 nitroglycerin without any response also complaining of shortness of breath patient does have history of sleep apnea and COPD denies any significant cough or shortness of breath Related Data Home Medications Medication Instructions Recorded Confirmed acetaminophen 650 mg 650 mg PO Q8H PRN 12/13/20 12/13/20 tablet,extended release (8 Hour Pain Reliever) albuterol sulfate 90 mcg/actuation 2 puff INHALATION Q6H PRN 12/13/20 12/13/20 aerosol inhaler amitriptyline 10 mg tablet 1 tab PO BEDTIME 12/13/20 12/13/20 amlodipine 10 mg tablet 1 tab PO DAILY 12/13/20 12/13/20 aspirin 81 mg tablet,delayed 1 tab PO DAILY 12/13/20 12/13/20 release atorvastatin 80 mg tablet 1 tab PO DAILY 12/13/20 12/13/20 cetirizine 10 mg tablet 1 tab PO DAILY 12/13/20 12/13/20 clonazepam 1 mg tablet 1 tab PO BEDTIME 12/13/20 12/13/20 cyclobenzaprine 5 mg tablet 1 tab PO TID PRN 12/13/20 12/13/20 docusate sodium 100 mg capsule 1 cap PO BID 12/13/20 12/13/20 (DOK) empagliflozin 10 mg tablet 1 tab PO DAILY 12/13/20 12/13/20 (Jardiance) ezetimibe 10 mg tablet 1 tab PO DAILY 12/13/20 12/13/20 gabapentin 300 mg capsule 300 mg PO BID@0900,1500 12/13/20 12/13/20 gabapentin 300 mg capsule 600 mg PO BEDTIME 12/13/20 12/13/20 gemfibrozil 600 mg tablet 600 mg PO BID 12/13/20 12/13/20 insulin glargine 100 unit/mL (3 10 unit SUBCUT BID 12/13/20 12/13/20 mL) subcutaneous pen (Lantus Solostar U-100 Insulin) isosorbide mononitrate 30 mg 1 tab PO DAILY 12/13/20 12/13/20 tablet,extended release 24 hr isosorbide mononitrate 60 mg 1 tab PO DAILY 12/13/20 12/13/20 tablet,extended release 24 hr ketoconazole 2 % topical cream 1 appl TOPICAL DAILY 12/13/20 12/13/20 magnesium oxide 400 mg (241.3 mg 1 tab PO BID 12/13/20 12/13/20 magnesium) tablet metformin 1,000 mg tablet 1 tab PO BID 12/13/20 12/13/20 metoprolol succinate 100 mg 100 mg PO BID 12/13/20 12/13/20 tablet,extended release 24 hr montelukast 10 mg tablet 1 tab PO DAILY 12/13/20 12/13/20 nitroglycerin 0.4 mg sublingual 0.4 mg SUBLINGUAL Q5M PRN 12/13/20 12/13/20 tablet omeprazole 40 mg capsule,delayed 1 cap PO DAILY 12/13/20 12/13/20 release oxycodone 10 mg tablet 1 tab PO Q8H PRN 12/13/20 12/13/20 sennosides 8.6 mg tablet (senna) 2 tab PO DAILY 12/13/20 12/13/20 ticagrelor 90 mg tablet (Brilinta) 1 tab PO BID 12/13/20 12/13/20 umeclidinium 62.5 mcg/actuation 1 inh INHALATION DAILY 12/13/20 12/13/20 blister powder for inhalation (Incruse Ellipta) varenicline 1 mg tablet (Chantix) 1 tab PO BID 12/13/20 12/13/20 Allergies Allergy/AdvReac Type Severity Reaction Status Date / Time SHELFISH Allergy Unknown Difficulty Uncoded 06/29/21 01:16 Breathing TORADOL Allergy Unknown Difficulty Uncoded 06/29/21 01:16 Breathing Review of Systems Review of Systems: Yes all other systems are reviewed and are negative PMFSH Past Medical History Medical History Asthma Atherosclerotic cardiovascular disease CAD (coronary artery disease) Cancer of kidney Chronic obstructive pulmonary disease, unspecified COPD (chronic obstructive pulmonary disease) Diabetes Essential hypertension Other and unspecified hyperlipidemia Type 2 diabetes mellitus with unspecified complications Surgical History History of appendectomy Hx of cholecystectomy S/P CABG x 2 Status post coronary artery bypass graft Stented coronary artery Social History Social History Household Members: Family Do you presently have visiting nurse or other home services: Yes Alcohol intake: never Advance Directives: No Advance Directives Information Provided: Yes service: No Current occupational status: unemployed Physical Exam Vital Signs: Vital Signs: Last Vital Signs Temp 97.9 F 06/29/21 06:17 Pulse 79 06/29/21 06:17 Resp 14 06/29/21 05:41 BP 121/74 06/29/21 06:17 Pulse Ox 97 06/29/21 06:17 Oxygen Flow Rate 2 06/29/21 01:10 Body Mass Index 35.5 Appearance: Alert. Oriented X3. In mild distress Eyes: No pallor or icterus ENT: Pharynx normal. Oral Mucosa moist Neck: Normal inspection. Neck supple. CVS: Normal heart rate and rhythm. Pulses normal. Respiratory: No respiratory distress. Equal air entry bilateral, no wheezing/rales/rhonchi Abdomen: Soft and nontender. Bowel sounds are present, no mass palpable, no CVA tenderness Skin: Skin warm and dry. Normal skin color. Normal skin turgor. Extremities: No lower extremity edema. No calf tenderness Neuro: Oriented X 3. No motor deficit. MDM - Chest Pain MDM Narrative Medical decision making narrative: Patient has significant coronary artery disease status post PCI and CABG is still complaining of chest pain has taken 4 nitros at home without any response nitropaste also did not given the response 2 sets of troponins are negative patient still not satisfied is still complaining of pain. Third troponin also negative for delta change patient feel much better now likely musculoskeletal pain as in the past discharge patient home advised to follow with auto refinisher Lab Data Attestation: I reviewed the patient's lab results. Result diagrams: 06/29/21 02:05 06/29/21 03:42 Labs: Lab Results 06/29/21 06/29/2106/29/21 Range/Units 02:05 02:05 02:05 WBC 6.3 (4.8-10.8) X10*3/uL RBC 5.80 (4.60-5.80) X10*6/uL Hgb 13.3 L (14.0-18.0) g/dl Hct 41.6 L (42-52) % MCV 71.7 L (80-98) fL MCH 22.9 L (27.0-33.0) pg MCHC 32.0 (31.0-36.0) g/dl RDW 19.0 H (11.0-16.0) % Plt Count 280 (160-400) X10*3/uL MPV 9.5 (9.4-12.4) fL Immature Gran % (Auto) 0.3 (0.0-0.4) % Neut % (Auto) 51.4 (45-73) % Lymph % (Auto) 34.9 (20-40) % [place] % (Auto) 11.0 (2-11) % Eos % (Auto) 2.1 (0-4) % Baso % (Auto) 0.3 (0-2) % Lymph # (Auto) 2.2 (1.2-4.9) X10*3/uL [place] # (Auto) 0.7 (0.1-1.2) X10*3/uL Eos # (Auto) 0.1 (0.0-0.4) X10*3/uL Baso # (Auto) 0.0 (0.0-0.2) X10*3/uL Abs Immat Gran (auto) 0.02 (0.00-0.03) X10*3/uL Absolute Neuts (auto) 3.2 (2.0-8.3) X10*3/uL Absolute Nucleated RBC 0.000 (0.0-0.012) X10*3/uL Nucleated RBC % (auto) 0.0 (0.0-0.2) /100WBC PT 11.7 (9.9-13.0) SEC INR 1.0 (0.9-1.1) APTT 33.2 (24.1-38.0) SEC Sodium (135-145) mmol/L Potassium (3.3-5.1) mmol/L Chloride (96-108) mmol/L Carbon Dioxide (22-29) mmol/L Anion Gap (12-20) BUN (9-16) mg/dL Creatinine (0.5-1.4) mg/dL Estim Creat Clear Calc Estimated GFR Random Glucose (60-115) mg/dL Calcium (8.4-10.2) mg/dL Troponin I High Sens 7.0 (<3.5-35.0) ng/L COVID-19 (JUDE) (Negative) COVID-19 Clin Com 06/29/21 06/29/21 06/29/21 Range/Units 02:05 03:42 03:42 WBC (4.8-10.8) X10*3/uL RBC (4.60-5.80) X10*6/uL Hgb (14.0-18.0) g/dl Hct (42-52) % MCV (80-98) fL MCH (27.0-33.0) pg MCHC (31.0-36.0) g/dl RDW (11.0-16.0) % Plt Count (160-400) X10*3/uL MPV (9.4-12.4) fL Immature Gran % (Auto) (0.0-0.4) % Neut % (Auto) (45-73) % Lymph % (Auto) (20-40) % [place] % (Auto) (2-11) % Eos % (Auto) (0-4) % Baso % (Auto) (0-2) % Lymph # (Auto) (1.2-4.9) X10*3/uL [place] # (Auto) (0.1-1.2) X10*3/uL Eos # (Auto) (0.0-0.4) X10*3/uL Baso # (Auto) (0.0-0.2) X10*3/uL Abs Immat Gran (auto) (0.00-0.03) X10*3/uL Absolute Neuts (auto) (2.0-8.3) X10*3/uL Absolute Nucleated RBC (0.0-0.012) X10*3/uL Nucleated RBC % (auto) (0.0-0.2) /100WBC PT (9.9-13.0) SEC INR (0.9-1.1) APTT (24.1-38.0) SEC Sodium 138 (135-145) mmol/L Potassium 4.0 (3.3-5.1) mmol/L Chloride 105 (96-108) mmol/L Carbon Dioxide 17 L (22-29) mmol/L Anion Gap 20 (12-20) BUN 22 H (9-16) mg/dL Creatinine 1.34 (0.5-1.4) mg/dL Estim Creat Clear Calc 85.3 Estimated GFR 56 Random Glucose 195 H (60-115) mg/dL Calcium 9.6 (8.4-10.2) mg/dL Troponin I High Sens 6.8 (<3.5-35.0) ng/L COVID-19 (JUDE) Negative (Negative) COVID-19 Clin Com See Note 06/29/21 Range/Units 06:04 WBC (4.8-10.8) X10*3/uL RBC (4.60-5.80) X10*6/uL Hgb (14.0-18.0) g/dl Hct (42-52) % MCV (80-98) fL MCH (27.0-33.0) pg MCHC (31.0-36.0) g/dl RDW (11.0-16.0) % Plt Count (160-400) X10*3/uL MPV (9.4-12.4) fL Immature Gran % (Auto) (0.0-0.4) % Neut % (Auto) (45-73) % Lymph % (Auto) (20-40) % [place] % (Auto) (2-11) % Eos % (Auto) (0-4) % Baso % (Auto) (0-2) % Lymph # (Auto) (1.2-4.9) X10*3/uL [place] # (Auto) (0.1-1.2) X10*3/uL Eos # (Auto) (0.0-0.4) X10*3/uL Baso # (Auto) (0.0-0.2) X10*3/uL Abs Immat Gran (auto) (0.00-0.03) X10*3/uL Absolute Neuts (auto) (2.0-8.3) X10*3/uL Absolute Nucleated RBC (0.0-0.012) X10*3/uL Nucleated RBC % (auto) (0.0-0.2) /100WBC PT (9.9-13.0) SEC INR (0.9-1.1) APTT (24.1-38.0) SEC Sodium (135-145) mmol/L Potassium (3.3-5.1) mmol/L Chloride (96-108) mmol/L Carbon Dioxide (22-29) mmol/L Anion Gap (12-20) BUN (9-16) mg/dL Creatinine (0.5-1.4) mg/dL Estim Creat Clear Calc Estimated GFR Random Glucose (60-115) mg/dL Calcium (8.4-10.2) mg/dL Troponin I High Sens 7.1 (<3.5-35.0) ng/L COVID-19 (JUDE) (Negative) COVID-19 Clin Com ECG Data ECG #1: Attestation: I personally reviewed and interpreted this ECG as follows: Interpretation: Normal sinus rhythm heart rate 93 beats per minute cued base inferior leads no acute ST T wave changes no acute ischemia Discharge Plan Discharge Clinical Impression: Chest pain Qualifiers: Chest pain type: precordial pain Qualified Code(s): R07.2 - Precordial pain Patient Disposition: Home, Self-Care Instructions: Chest Pain (ED) Additional Instructions: Your chest pain is likely musculoskeletal. Follow-up with your auto refinisher Taking med pain medication as prescribed by PCP Prescriptions: No Action atorvastatin 80 mg tablet 1 tab PO DAILY RF: 0 sennosides [senna] 8.6 mg tablet 2 tab PO DAILY RF: 0 cetirizine 10 mg tablet 1 tab PO DAILY RF: 0 isosorbide mononitrate 30 mg tablet extended release 24 hr 1 tab PO DAILY RF: 0 metoprolol succinate 100 mg tablet extended release 24 hr 100 mg PO BID RF: 0 clonazepam 1 mg tablet 1 tab PO BEDTIME RF: 0 omeprazole 40 mg capsule,delayed release(DR/EC) 1 cap PO DAILY RF: 0 aspirin 81 mg tablet,delayed release (DR/EC) 1 tab PO DAILY RF: 0 acetaminophen [8 Hour Pain Reliever] 650 mg tablet extended release 650 mg PO Q8H PRN (Reason: Pain) RF: 0 isosorbide mononitrate 60 mg tablet extended release 24 hr 1 tab PO DAILY RF: 0 magnesium oxide 400 mg (241.3 mg magnesium) tablet 1 tab PO BID RF: 0 amitriptyline 10 mg tablet 1 tab PO BEDTIME RF: 0 amlodipine 10 mg tablet 1 tab PO DAILY RF: 0 gemfibrozil 600 mg tablet 600 mg PO BID RF: 0 metformin 1,000 mg tablet 1 tab PO BID RF: 0 nitroglycerin 0.4 mg tablet, sublingual 0.4 mg sublingual Q5M PRN (Reason: Chest Pain) RF: 0 docusate sodium [DOK] 100 mg capsule 1 cap PO BID RF: 0 gabapentin 300 mg capsule 300 mg PO BID@0900,1500 RF: 0 montelukast 10 mg tablet 1 tab PO DAILY RF: 0 albuterol sulfate 90 mcg/actuation HFA aerosol inhaler 2 puff inhalation Q6H PRN (Reason: Shortness Of Breath) RF: 0 ketoconazole 2 % cream 1 appl topical DAILY RF: 0 ezetimibe 10 mg tablet 1 tab PO DAILY RF: 0 cyclobenzaprine 5 mg tablet 1 tab PO TID PRN (Reason: Muscle Spasm) RF: 0 Chantix 1 mg tablet 1 tab PO BID RF: 0 Lantus Solostar U-100 Insulin 100 unit/mL (3 mL) insulin pen 10 unit subcut BID RF: 0 oxycodone 10 mg tablet 1 tab PO Q8H PRN (Reason: Pain (Scale Score 4-6)) RF: 0 Brilinta 90 mg tablet 1 tab PO BID RF: 0 Incruse Ellipta 62.5 mcg/actuation blister with device 1 inh inhalation DAILY RF: 0 Jardiance 10 mg tablet 1 tab PO DAILY RF: 0 gabapentin 300 mg capsule 600 mg PO BEDTIME RF: 0
[2021-06-29 02:08] VITALS: BP 141/88; PULSE 87; RESP 18; O2SAT 97
[2021-06-29] MEDS: Nitroglycerin 2 % Oint 1 GM Packet 1 INCH TRANSDERMA (02:09)
[2021-06-29 02:10] LABS: Basophils Percent Auto 0.3 % (0-2); Eosinophils Absolute Auto 0.1 X10*3/uL (0.0-0.4); Eosinophils Percent Auto 2.1 % (0-4); Hematocrit 41.6 % (42-52); Hemoglobin 13.3 g/dl (14.0-18.0); Imm Gran Abs Auto 0.02 X10*3/uL (0.00-0.03); Imm Gran Pct Auto 0.3 % (0.0-0.4); Lymphocytes Absolute Auto 2.2 X10*3/uL (1.2-4.9); Lymphocytes Percent Auto 34.9 % (20-40); MANUAL DIFF FLAG NO; Mean Corpuscular Hemoglobin 22.9 pg (27.0-33.0); Mean Corpuscular Volume 71.7 fL (80-98); Mean Platelet Volume 9.5 fL (9.4-12.4); Monocytes Absolute Auto 0.7 X10*3/uL (0.1-1.2); Neutrophils Absolute Auto 3.2 X10*3/uL (2.0-8.3); Neutrophils Percent Auto 51.4 % (45-73); Platelet Count 280 X10*3/uL (160-400); White Blood Count 6.3 X10*3/uL (4.8-10.8)
[2021-06-29] MEDS: Heparin Sodium,Porcine 5,000 UNIT/ML VIAL 5000 UNIT IVPUSH (02:10)
[2021-06-29 02:19] LABS: Prothrombin Time 11.7 SEC (9.9-13.0)
[2021-06-29 02:21] LABS: Partial Thromboplastin Time 33.2 SEC (24.1-38.0)
[2021-06-29 02:34] LABS: COVID-19 Test Negative (Negative); IDNOW Serial# 9DD0AD1C
[2021-06-29 03:19] VITALS: RESP 12
[2021-06-29] MEDS: ondansetron HCL 4 MG/2 ML VIAL IVPUSH (03:19)
[2021-06-29] MEDS: Morphine Sulfate 4 MG/ML CARTRIDGE IVPUSH ×2 (03:19→05:41)
[2021-06-29 04:00] VITALS: BP 135/70; PULSE 80; RESP 16; O2SAT 97
[2021-06-29 04:29] LABS: Troponin-I High Sensitivity 6.8 ng/L (<3.5-35.0)
[2021-06-29 04:45] LABS: Anion Gap 20 (12-20); Blood Urea Nitrogen 22 mg/dL (9-16); Calcium 9.6 mg/dL (8.4-10.2); Carbon Dioxide 17 mmol/L (22-29); Chloride 105 mmol/L (96-108); Creatinine Clr Calc Pharmacy 85.3; Estimated Glomerular Filt Rate 56; Glucose Random 195 mg/dL (60-115); Sodium 138 mmol/L (135-145)
--- NOTE | 2021-06-29 05:23 | PC.NURSE ---
patient does not want to stay for admission. plan will be to redraw blood work at 630 am if troponin is at baseline plan will be for discharge over admission.
[2021-06-29 05:41] VITALS: RESP 14
[2021-06-29 06:17] VITALS: BP 121/74; PULSE 79; TEMP 36.6; O2SAT 97
[2021-06-29 06:37] LABS: Troponin-I High Sensitivity 7.1 ng/L (<3.5-35.0)
== END 2021-06-29 07:28 | disposition home or self-care (01) ==
PROVIDERS: Emergency Provider Internal Medicine; PCP Registered Nurse
DX: R07.2 Precordial pain (principal); I25.10 Atherosclerotic heart disease of native coronary artery without angina pectoris; Z20.822 Contact with and (suspected) exposure to COVID-19; Z79.899 Other long term (current) drug therapy
CPT/HCPCS: 36415; 71045; 80048; 84484; 85025; 85610; 85730; 87635; 93005; 96374; 96375; 96376; 99284; J2270; J2405

== ENCOUNTER 2022-03-01 05:06 | Observation (INO) | payer OTHER, SELFPAY ==
[2022-03-01] VITALS (8 sets, daily range): BP systolic 127–171; BP diastolic 61–98; PULSE 54–72; RESP 11–20; TEMP 36.4; O2SAT 94–98; BMI 33.5
--- NOTE | ~2022-03-01 | CT_ITS ---
EXAMINATION: CT HEAD WITHOUT CONTRAST CLINICAL INFORMATION: Fall head pain on brilinta COMPARISON: CT scan of the head 07/28/2016. TECHNIQUE: Contiguous axial imaging was performed from the skull base to vertex without intravenous administration of contrast. This CT examination was performed using dose optimization techniques as appropriate, variously including the following: *Automated exposure control *Adjustment of mA and/or kV according to patient size (this includes techniques or standardized protocols for targeted exams where dose is matched to indication/reason for exam; i.e. extremities or head) *Use of iterative reconstruction technique DLP: 745 mGy-cm FINDINGS: There is no acute intracranial hemorrhage or abnormal extra-axial collection. No intracranial mass effect or midline shift. Lateral and third ventricles are normal. Duckworth-white matter differentiation is grossly preserved and there is no evidence of acute territorial infarct. The calvarium and skull base are intact. Mastoid air cells and middle ear cavities are well aerated. There is mild to moderate paranasal sinus disease primarily affecting the anterior ethmoid air cells and the right maxillary sinus. Globes and orbits are symmetric. CT/CT head/brain wo con IMPRESSION: Unremarkable examination of there is no evidence of acute intracranial hemorrhage. No intracranial mass effect or hydrocephalus.
--- NOTE | ~2022-03-01 | XR_ITS ---
EXAMINATION: XR CHEST CLINICAL INFORMATION: Chest pain COMPARISON: 06/29/2021 TECHNIQUE: Frontal view of the chest was obtained. FINDINGS: Cardiac leads overlie the chest. Median sternotomy wires are intact. The lungs are well expanded. There is no focal consolidation, edema, or effusion. No pneumothorax. The cardiomediastinal silhouette is within normal limits. No acute osseous abnormality. XR/XR chest 1V IMPRESSION: Clear lungs.
--- NOTE | 2022-03-01 05:08 | ECG_ITS ---
Test Reason : CHEST PAIN Blood Pressure : / mmHG Vent. Rate : 068 BPM Atrial Rate : 068 BPM P-R Int : 120 ms QRS Dur : 100 ms QT Int : 398 ms P-R-T Axes : -10 029 061 degrees QTc Int : 423 ms Normal sinus rhythm Normal ECG When compared with ECG of 29-JUN-2021 01:00, No significant change was found Referred By: Generic ED Physician Electronically Signed By:RANCHO GODWIN
[2022-03-01 05:34] LABS: Basophils Percent Auto 0.3 % (0-2); Eosinophils Absolute Auto 0.1 X10*3/uL (0.0-0.4); Eosinophils Percent Auto 1.9 % (0-4); Hematocrit 50.4 % (42.0-52.0); Hemoglobin 16.1 g/dl (14.0-18.0); Imm Gran Abs Auto 0.05 X10*3/uL (0.00-0.03); Imm Gran Pct Auto 0.7 % (0.0-0.4); Lymphocytes Absolute Auto 2.8 X10*3/uL (1.2-4.9); Lymphocytes Percent Auto 38.2 % (20-40); MANUAL DIFF FLAG NO; Mean Corpuscular HGB Conc 31.9 g/dl (31.0-36.0); Mean Corpuscular Hemoglobin 24.4 pg (27.0-33.0); Mean Corpuscular Volume 76.2 fL (80.0-98.0); Mean Platelet Volume 9.3 fL (9.4-12.4); Monocytes Absolute Auto 0.6 X10*3/uL (0.1-1.2); Monocytes Percent Auto 8.1 % (2-11); Neutrophils Absolute Auto 3.8 x10*3/uL (2.0-8.3); Neutrophils Percent Auto 50.8 % (45-73); Platelet Count 308 X10*3/uL (160-400); Red Blood Count 6.61 X10*6/uL (4.60-5.80); Red Cell Distribution Width 20.1 % (11.0-16.0); White Blood Count 7.4 X10*3/uL (4.8-10.8)
[2022-03-01 05:39] LABS: Prothrombin Time 11.2 SEC (9.9-13.0)
[2022-03-01 05:49] LABS: Anion Gap 17 (12-20); Blood Urea Nitrogen 23 mg/dL (9-16); Calcium 10.8 mg/dL (8.4-10.2); Carbon Dioxide 25 mmol/L (22-29); Chloride 104 mmol/L (96-108); Creatinine Clr Calc Pharmacy 97.2; Estimated Glomerular Filt Rate > 60; Glucose Random 160 mg/dL (60-115); Potassium 4.6 mmol/L (3.3-5.1); Sodium 141 mmol/L (135-145)
[2022-03-01 05:50] LABS: COVID-19 Test Negative (Negative)
[2022-03-01 05:54] LABS: Troponin-I High Sensitivity 5.7 ng/L (<3.5-35.0)
--- NOTE | 2022-03-01 06:37 | ED_ITS ---
HPI - Chest Pain General Chief Complaint: Chest Pain Stated Complaint: Chest pain Time Seen by Provider: 03/01/22 06:36 Source: patient and old records reviewed Mode of arrival: ambulatory Limitations: no limitations History of Present Illness HPI narrative: 51 yo male with hx of COPD, DM, anxiety, pain issues, CAD s/p multiple PCIs and CABG 2 years ago has a hx of chest pain after the procedure but not as severe where he was coming every twice a week to the hospital. He notes yesterday at 7pm he was watching TV at home developed nausea, dizziness, chest pressure and dyspnea. The pressure makes his left arm feel tingly. He has had these episodes before. He took 5 nitro and tried to wait at [facility] for 6 hours in their waiting room. He had no relief with nitro and when he went home he felt dizzy and states he briefly fell and had short LOC and hit head on stairs. He notes nitro has never helped his pain in the past and he is allergic to morphine. MD complaint: chest pain Pertinent past history: coronary artery disease, prior [place] and CABG (2 years ago ) Onset (ago): hour(s) (12) Timing of current episode: constant Prior episodes: Yes Onset: during rest Pain location: substernal and left chest Pain radiation: left arm Severity: moderate Quality: heaviness Relieving factors: nothing Exacerbating factors: nothing Context: other (hx of similar episodes in past) Associated symptoms: nausea, dyspnea and syncope Treatment prior to arrival: aspirin and nitroglycerin Related Data Home Medications Medication Instructions Recorded Confirmed acetaminophen 650 mg 650 mg PO Q8H PRN 12/13/20 12/13/20 tablet,extended release (8 Hour Pain Reliever) albuterol sulfate 90 mcg/actuation 2 puff INHALATION Q6H PRN 12/13/20 12/13/20 aerosol inhaler amitriptyline 10 mg tablet 1 tab PO BEDTIME 12/13/20 12/13/20 amlodipine 10 mg tablet 1 tab PO DAILY 12/13/20 12/13/20 aspirin 81 mg tablet,delayed 1 tab PO DAILY 12/13/20 12/13/20 release atorvastatin 80 mg tablet 1 tab PO DAILY 12/13/20 12/13/20 cetirizine 10 mg tablet 1 tab PO DAILY 12/13/20 12/13/20 clonazepam 1 mg tablet 1 tab PO BEDTIME 12/13/20 12/13/20 cyclobenzaprine 5 mg tablet 1 tab PO TID PRN 12/13/20 12/13/20 docusate sodium 100 mg capsule 1 cap PO BID 12/13/20 12/13/20 (DOK) empagliflozin 10 mg tablet 1 tab PO DAILY 12/13/20 12/13/20 (Jardiance) ezetimibe 10 mg tablet 1 tab PO DAILY 12/13/20 12/13/20 gabapentin 300 mg capsule 300 mg PO BID@0900,1500 12/13/20 12/13/20 gabapentin 300 mg capsule 600 mg PO BEDTIME 12/13/20 12/13/20 gemfibrozil 600 mg tablet 600 mg PO BID 12/13/20 12/13/20 insulin glargine 100 unit/mL (3 10 unit SUBCUT BID 12/13/20 12/13/20 mL) subcutaneous pen (Lantus Solostar U-100 Insulin) isosorbide mononitrate 30 mg 1 tab PO DAILY 12/13/20 12/13/20 tablet,extended release 24 hr isosorbide mononitrate 60 mg 1 tab PO DAILY 12/13/20 12/13/20 tablet,extended release 24 hr ketoconazole 2 % topical cream 1 appl TOPICAL DAILY 12/13/20 12/13/20 magnesium oxide 400 mg (241.3 mg 1 tab PO BID 12/13/20 12/13/20 magnesium) tablet metformin 1,000 mg tablet 1 tab PO BID 12/13/20 12/13/20 metoprolol succinate 100 mg 100 mg PO BID 12/13/20 12/13/20 tablet,extended release 24 hr montelukast 10 mg tablet 1 tab PO DAILY 12/13/20 12/13/20 nitroglycerin 0.4 mg sublingual 0.4 mg SUBLINGUAL Q5M PRN 12/13/20 12/13/20 tablet omeprazole 40 mg capsule,delayed 1 cap PO DAILY 12/13/20 12/13/20 release oxycodone 10 mg tablet 1 tab PO Q8H PRN 12/13/20 12/13/20 sennosides 8.6 mg tablet (senna) 2 tab PO DAILY 12/13/20 12/13/20 ticagrelor 90 mg tablet (Brilinta) 1 tab PO BID 12/13/20 12/13/20 umeclidinium 62.5 mcg/actuation 1 inh INHALATION DAILY 12/13/20 12/13/20 blister powder for inhalation (Incruse Ellipta) varenicline 1 mg tablet (Chantix) 1 tab PO BID 12/13/20 12/13/20 Allergies Allergy/AdvReac Type Severity Reaction Status Date / Time morphine Allergy Unknown Verified 03/01/22 05:17 niacin Allergy Unknown Verified 03/01/22 05:17 SHELFISH Allergy Unknown Difficulty Uncoded 03/01/22 05:17 Breathing TORADOL Allergy Unknown Difficulty Uncoded 03/01/22 05:17 Breathing Review of Systems Review of Systems: Constitutional : No Weight loss, No Fever, No Chills ENT/Mouth : No sore throat, No Rhinorrhea Eyes: No Eye Pain, No Swelling Cardiovascular : pos Chest Pain, pos SOB, no Dyspnea on Exertion, No Orthopnea, No Edema, No Palpitations Respiratory : No Cough, No Sputum Gastrointestinal : pos Nausea, No Vomiting, No Diarrhea, No abdominal Pain, No Hematochezia, No Melena Genitourinary : No Dysuria, No Urinary Frequency Musculoskeletal : No joint pain, No Myalgias, No Joint Swelling Skin : No Skin Lesions, No rash Neuro : No Weakness, No Numbness, pos Dizziness, No Headache, pos syncope Psych : No Anxiety/Panic, No Depression Heme/Lymph: No Bruising, No Lymphadenopathy Endocrine : No Polyuria, No Polydipsia All other systems reviewed and are negative PMFSH Past Medical History Attestation statement: The following information was validated with the patient. Medical History Asthma Atherosclerotic cardiovascular disease CAD (coronary artery disease) Cancer of kidney Chronic obstructive pulmonary disease, unspecified COPD (chronic obstructive pulmonary disease) Diabetes Essential hypertension Other and unspecified hyperlipidemia Type 2 diabetes mellitus with unspecified complications Surgical History History of appendectomy Hx of cholecystectomy S/P CABG x 2 Status post coronary artery bypass graft Stented coronary artery Social History Social History (Updated 03/01/22 @ 06:58 by Cecilia Jansen DO) Household Members: Family Do you presently have visiting nurse or other home services: Yes Alcohol intake: never Patient Tobacco Use Status: Former Tobacco user Use of substances other than those prescribed or required for medical reasons: No Advance Directives: No service: No Current occupational status: unemployed Physical Exam Vital Signs: Vital Signs: Last Vital Signs Temp 97.6 F 03/01/22 05:17 Pulse 62 03/01/22 08:48 Resp 18 03/01/22 08:48 BP 137/61 03/01/22 08:48 Pulse Ox 96 03/01/22 08:48 BMI result Body Mass Index 33.5 Appearance: Alert. Oriented X3. No acute distress. Eyes: Pupils equal, round and reactive to light. ENT: Pharynx normal. Neck: Normal inspection. Neck supple. CVS: Normal heart rate and rhythm. Pulses normal. Respiratory: No respiratory distress. Breath sounds diminished with wheezes n oted upper and mild lung zones posteriorly Abdomen: Soft and nontender. Skin: Skin warm and dry. Normal skin color. Normal skin turgor. Extremities: No lower extremity edema. No calf ttp Neuro: Oriented X 3. No motor deficit. No sensory deficit. Course Course Course Narrative: patient's Cardiology notes from December 2020 and July 2020 do note that he has chest pain post CABG and takes nitro frequently and also at times feels he is going to pass out. repeat trop negative discussed with [place] admit for stress test MDM - Chest Pain MDM Narrative Medical decision making narrative: 51 yo male with hx of CAD s/p PCI and CABG, DM, COPD here with c/o chest pain since 7pm yesterday EKG nonischemic and initial trop flat with > 6 hours of pain. He has no tachycardia signs of DVT or hypoxia to suggest PE. He took 5 SL nitro at home without relief and then had syncopal episode ? precipitous drop in blood pressure. 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 Lab Data Result diagrams: 03/01/22 05:29 03/01/22 05:29 Labs: Lab Results 03/01/22 03/01/22 03/01/22 Range/Units 05:29 05:29 05:29 WBC 7.4 (4.8-10.8) X10*3/uL RBC 6.61 H (4.60-5.80) X10*6/uL Hgb 16.1 (14.0-18.0) g/dl Hct 50.4 (42.0-52.0) % MCV 76.2 L (80.0-98.0) fL MCH 24.4 L (27.0-33.0) pg MCHC 31.9 (31.0-36.0) g/dl RDW 20.1 H (11.0-16.0) % Plt Count 308 (160-400) X10*3/uL MPV 9.3 L (9.4-12.4) fL Immature Gran % (Auto) 0.7 H (0.0-0.4) % Neut % (Auto) 50.8 (45-73) % Lymph % (Auto) 38.2 (20-40) % [place] % (Auto) 8.1 (2-11) % Eos % (Auto) 1.9 (0-4) % Baso % (Auto) 0.3 (0-2) % Lymph # (Auto) 2.8 (1.2-4.9) X10*3/uL [place] # (Auto) 0.6 (0.1-1.2) X10*3/uL Eos # (Auto) 0.1 (0.0-0.4) X10*3/uL Baso # (Auto) 0.0 (0.0-0.2) X10*3/uL Abs Immat Gran (auto) 0.05 H (0.00-0.03) X10*3/uL Absolute Neuts (auto) 3.8 (2.0-8.3) x10*3/uL Absolute Nucleated RBC 0.000 (0.0-0.012) X10*3/uL Nucleated RBC % (auto) 0.0 (0.0-0.2) /100WBC PT (9.9-13.0) SEC INR (0.9-1.1) Sodium 141 (135-145) mmol/L Potassium 4.6 (3.3-5.1) mmol/L Chloride 104 (96-108) mmol/L Carbon Dioxide 25 (22-29) mmol/L Anion Gap 17 (12-20) BUN 23 H (9-16) mg/dL Creatinine 1.14 (0.5-1.4) mg/dL Estim Creat Clear Calc 97.2 Estimated GFR > 60 Random Glucose 160 H (60-115) mg/dL Calcium 10.8 H D (8.4-10.2) mg/dL Troponin I High Sens 5.7 (<3.5-35.0) ng/L Urine Opiates Screen (Not Detect) Urine Fentanyl Screen (Not Detect) Ur Barbiturates Screen (Not Detect) Ur Phencyclidine Scrn (Not Detect) Ur Amphetamines Screen (Not Detect) U Benzodiazepines Scrn (Not Detect) Urine Cocaine Screen (Not Detect) U Marijuana (THC) Screen (Not Detect) COVID-19 (JUDE) (Negative) COVID-19 Clin Com 03/01/22 03/01/22 03/01/22 Range/Units 05:29 05:29 07:49 WBC (4.8-10.8) X10*3/uL RBC (4.60-5.80) X10*6/uL Hgb (14.0-18.0) g/dl Hct (42.0-52.0) % MCV (80.0-98.0) fL MCH (27.0-33.0) pg MCHC (31.0-36.0) g/dl RDW (11.0-16.0) % Plt Count (160-400) X10*3/uL MPV (9.4-12.4) fL Immature Gran % (Auto) (0.0-0.4) % Neut % (Auto) (45-73) % Lymph % (Auto) (20-40) % [place] % (Auto) (2-11) % Eos % (Auto) (0-4) % Baso % (Auto) (0-2) % Lymph # (Auto) (1.2-4.9) X10*3/uL [place] # (Auto) (0.1-1.2) X10*3/uL Eos # (Auto) (0.0-0.4) X10*3/uL Baso # (Auto) (0.0-0.2) X10*3/uL Abs Immat Gran (auto) (0.00-0.03) X10*3/uL Absolute Neuts (auto) (2.0-8.3) x10*3/uL Absolute Nucleated RBC (0.0-0.012) X10*3/uL Nucleated RBC % (auto) (0.0-0.2) /100WBC PT 11.2 (9.9-13.0) SEC INR 1.0 (0.9-1.1) Sodium (135-145) mmol/L Potassium (3.3-5.1) mmol/L Chloride (96-108) mmol/L Carbon Dioxide (22-29) mmol/L Anion Gap (12-20) BUN (9-16) mg/dL Creatinine (0.5-1.4) mg/dL Estim Creat Clear Calc Estimated GFR Random Glucose (60-115) mg/dL Calcium (8.4-10.2) mg/dL Troponin I High Sens (<3.5-35.0) ng/L Urine Opiates Screen Not Detected (Not Detect) Urine Fentanyl Screen Not Detected (Not Detect) Ur Barbiturates Screen Not Detected (Not Detect) Ur Phencyclidine Scrn Not Detected (Not Detect) Ur Amphetamines Screen Not Detected (Not Detect) U Benzodiazepines Scrn Not Detected (Not Detect) Urine Cocaine Screen Not Detected (Not Detect) U Marijuana (THC) Screen Not Detected (Not Detect) COVID-19 (JUDE) Negative (Negative) COVID-19 Clin Com See Note 03/01/22 Range/Units 08:27 WBC (4.8-10.8) X10*3/uL RBC (4.60-5.80) X10*6/uL Hgb (14.0-18.0) g/dl Hct (42.0-52.0) % MCV (80.0-98.0) fL MCH (27.0-33.0) pg MCHC (31.0-36.0) g/dl RDW (11.0-16.0) % Plt Count (160-400) X10*3/uL MPV (9.4-12.4) fL Immature Gran % (Auto) (0.0-0.4) % Neut % (Auto) (45-73) % Lymph % (Auto) (20-40) % [place] % (Auto) (2-11) % Eos % (Auto) (0-4) % Baso % (Auto) (0-2) % Lymph # (Auto) (1.2-4.9) X10*3/uL [place] # (Auto) (0.1-1.2) X10*3/uL Eos # (Auto) (0.0-0.4) X10*3/uL Baso # (Auto) (0.0-0.2) X10*3/uL Abs Immat Gran (auto) (0.00-0.03) X10*3/uL Absolute Neuts (auto) (2.0-8.3) x10*3/uL Absolute Nucleated RBC (0.0-0.012) X10*3/uL Nucleated RBC % (auto) (0.0-0.2) /100WBC PT (9.9-13.0) SEC INR (0.9-1.1) Sodium (135-145) mmol/L Potassium (3.3-5.1) mmol/L Chloride (96-108) mmol/L Carbon Dioxide (22-29) mmol/L Anion Gap (12-20) BUN (9-16) mg/dL Creatinine (0.5-1.4) mg/dL Estim Creat Clear Calc Estimated GFR Random Glucose (60-115) mg/dL Calcium (8.4-10.2) mg/dL Troponin I High Sens 3.9 (<3.5-35.0) ng/L Urine Opiates Screen (Not Detect) Urine Fentanyl Screen (Not Detect) Ur Barbiturates Screen (Not Detect) Ur Phencyclidine Scrn (Not Detect) Ur Amphetamines Screen (Not Detect) U Benzodiazepines Scrn (Not Detect) Urine Cocaine Screen (Not Detect) U Marijuana (THC) Screen (Not Detect) COVID-19 (JUDE) (Negative) COVID-19 Clin Com ECG Data ECG #1: Attestation: I personally reviewed and interpreted this ECG as follows: ECG interpretation date: 03/01/22 ECG interpretation time: 06:39 Interpretation: Rate: 68 Rhythm: NSR [place]: normal Normal P waves. Normal TEO. Normal QRS complex. ST T wave : normal no NATHANIEL qTC: normal prior studies: no acute ischemia The study has been interpreted contemporaneously by me. Discharge Plan Discharge Clinical Impression: Chest pain Patient Disposition: Admitted As Inpatient Prescriptions: No Action atorvastatin 80 mg tablet 1 tab PO DAILY 0RF sennosides [senna] 8.6 mg tablet 2 tab PO DAILY 0RF cetirizine 10 mg tablet 1 tab PO DAILY 0RF isosorbide mononitrate 30 mg tablet extended release 24 hr 1 tab PO DAILY 0RF metoprolol succinate 100 mg tablet extended release 24 hr 100 mg PO BID 0RF clonazepam 1 mg tablet 1 tab PO BEDTIME 0RF omeprazole 40 mg capsule,delayed release(DR/EC) 1 cap PO DAILY 0RF aspirin 81 mg tablet,delayed release (DR/EC) 1 tab PO DAILY 0RF acetaminophen [8 Hour Pain Reliever] 650 mg tablet extended release 650 mg PO Q8H PRN (Reason: Pain) 0RF isosorbide mononitrate 60 mg tablet extended release 24 hr 1 tab PO DAILY 0RF magnesium oxide 400 mg (241.3 mg magnesium) tablet 1 tab PO BID 0RF amitriptyline 10 mg tablet 1 tab PO BEDTIME 0RF amlodipine 10 mg tablet 1 tab PO DAILY 0RF gemfibrozil 600 mg tablet 600 mg PO BID 0RF metformin 1,000 mg tablet 1 tab PO BID 0RF nitroglycerin 0.4 mg tablet, sublingual 0.4 mg sublingual Q5M PRN (Reason: Chest Pain) 0RF docusate sodium [DOK] 100 mg capsule 1 cap PO BID 0RF gabapentin 300 mg capsule 300 mg PO BID@0900,1500 0RF montelukast 10 mg tablet 1 tab PO DAILY 0RF albuterol sulfate 90 mcg/actuation HFA aerosol inhaler 2 puff inhalation Q6H PRN (Reason: Shortness Of Breath) 0RF ketoconazole 2 % cream 1 appl topical DAILY 0RF ezetimibe 10 mg tablet 1 tab PO DAILY 0RF cyclobenzaprine 5 mg tablet 1 tab PO TID PRN (Reason: Muscle Spasm) 0RF Chantix 1 mg tablet 1 tab PO BID 0RF Lantus Solostar U-100 Insulin 100 unit/mL (3 mL) insulin pen 10 unit subcut BID 0RF oxycodone 10 mg tablet 1 tab PO Q8H PRN (Reason: Pain (Scale Score 4-6)) 0RF Brilinta 90 mg tablet 1 tab PO BID 0RF Incruse Ellipta 62.5 mcg/actuation blister with device 1 inh inhalation DAILY 0RF Jardiance 10 mg tablet 1 tab PO DAILY 0RF gabapentin 300 mg capsule 600 mg PO BEDTIME 0RF
[2022-03-01] MEDS: Albuterol Sulfate (0.083%) 2.5 MG/3 ML VIAL.NEB INHALE (07:25)
[2022-03-01] MEDS: HYDROmorphone HCl 1 MG/ML SYRINGE IVPUSH ×2 (07:47→10:35)
--- NOTE | 2022-03-01 07:52 | PC.NURSE ---
nsr on monitor. ambulatory to br and back w/o diff. no neuro deficits. cp constant. medicated with dilaudid for same. LS cta
[2022-03-01 08:09] LABS: Amphetamine Screen Urine Not Detected (Not Detect); Barbiturates, Urine Not Detected (Not Detect); Benzodiazepines Screen Urine Not Detected (Not Detect); Cannabinoid Screen Urine Not Detected (Not Detect); Cocaine Screen Urine Not Detected (Not Detect); Fentanyl, urine Not Detected (Not Detect); Opiate Screen Urine Not Detected (Not Detect); Phencyclidine Screen Urine Not Detected (Not Detect)
[2022-03-01] MEDS: ondansetron HCL 4 MG/2 ML VIAL IVPUSH (08:47)
[2022-03-01 08:56] LABS: Troponin-I High Sensitivity 3.9 ng/L (<3.5-35.0)
--- NOTE | 2022-03-01 09:28 | CA_ITS ---
Transthoracic Echocardiogram Patient (Last, First, Middle): Per Silvestre, Gender: Male Date of : 1970 Age: 51 Procedure Date: 03/01/2022 Procedure Type: Transthoracic Echocardiogram Location: ER Height: 180.34 cm Weight: 108.86 kg BSA: 2.28 m2 Heart Rate: bpm BP: 137 / 61 mmHg News Content Specialist: TO/YR Referring MD: Lenny Cho MD Symptoms: Chest pain Study Quality: Fair/contrast ECG Rhythm: Sinus Conclusions: - The left ventricular systolic function is normal. The calculated ejection fraction is 59% by biplane method. - The basal inferior segment is akinetic. - The basal inferolateral segment is hypokinetic. - Moderately increased right ventricular cavity size. - No obvious valvular pathology seen on this study. Findings Procedure Information Contrast agent, definity, is being given per protocol without apparent complications. Left Ventricle Normal left ventricular cavity size. The left ventricular systolic function is normal. The calculated ejection fraction is 59% by biplane method. There is no evidence of regional wall motion abnormalities. E/E prime ratio is between 8 and 15 consistent with indeterminate filling pressures. Evidence suggests grade II (moderate) diastolic dysfunction. There is mild septal asymmetric hypertrophy. Wall Motion Rest Echo Findings The basal inferolateral segment is hypokinetic. The basal inferior segment is akinetic. Right Ventricle Moderately increased right ventricular cavity size. There is normal right ventricular systolic function. Atria Both atria are normal in size. Aortic Valve There is a normal trileaflet aortic valve. There is no aortic valve stenosis. There is trace (trivial) aortic valve regurgitation. Mitral Valve The mitral valve appears normal. There is trace mitral valve regurgitation. There is no mitral valve stenosis. Pulmonic Valve The pulmonic valve was not well visualized. Tricuspid Valve Normal tricuspid valve structure. There is no tricuspid valve regurgitation. The pulmonary artery systolic pressure is normal. Great Vessels The asc aorta and aortic arch are normal in size. Venous The inferior vena cava is normal in size and collapses greater than 50% with inspiration. Pericardium/Pleural There is no evidence of pericardial effusion. Prior Study Comparison Changes noted compared to prior study dated: 07/31/2016. Wall motion abnormality not previously described. Recommendations, Care & Conclusions No obvious valvular pathology seen on this study. Measurements 2D Linear Measurements IVSd: 1.11 0.6-0.9/0.6-1.0 cm LVIDd: 6.10 3.9-5.3/4.2-5.9 cm LVIDd Index: 2.68 2.4-3.2/2.2-3.1 cm/m2 LVIDs: 3.88 2.0-3.6 cm LVPWd: 0.89 0.7-1.1 cm LA Diam: 4.30 2.7-3.8/3.0-4.0 cm LAIDs Index: 1.89 1.5-2.3 cm/m2 LV Mass: 316.84 67-162/88-224 g LV Mass Index: 138.97 43-95/49-115 g/m2 LVOT Diam: 2.40 3.0+(-)1.3 cm 2D Systolic Function EF 4C: 63.80 >55% EF 2C: 54.40 >55% EF BiP: 59.40 >55% Mitral Valve MV Pk E: 0.99 MV PK A: 0.78 MV Decel Time: 297.00 E/A: 1.30 E'Lateral: 7.94 E'Medial: 7.40 E/E' Med: 13.40 E/E' Lat: 12.50 PHT: 87.00 MVA PHT: 2.53 Decel Grainger: 3.33 Aortic Valve AoV Pk Humberto: 1.68 AoV Mn Humberto: 1.15 AoV VTI: 0.43 AoV Pk Grad: 11.00 Aov Mn Grad: 6.00 JUAN Cont.VTI: 2.25 LVOT LVOT Pk Humberto: 0.88 LVOT Mn Humberto: 0.54 LVOT VTI: 0.21 LVOT Pk Grad: 3.00 LVOT Mn Grad: 1.00 LVOT Diam: 2.40 LVOT Area: 4.52 Diastolic Function MV Pk E: 0.99 MV Pk A: 0.78 E/A: 1.30 E'Medial: 7.40 E/E' Med: 13.40 E' Laterial: 7.94 E/E' Lat: 12.50 Right Ventricle TAPSE (mm): 26.50 TVS' Humberto: 11.10 Tricuspid Valve TR Pk Humberto: 2.35 TR Pk Grad: 22.00 RA Press: 3.00 RVSP: 25.00 Great Vessels Aorta Sinus of Valsalva: 4.11 2.0-3.[address] [place]: 2.95 1.7-3.4 cm Ao Asc: 3.80 2.1-3.4 cm Ao Arch: 3.00 Updated in Other Vendor System with Status of Final Lenny Cho MD electronically signed on 03/01/2022 2:36:36 PM with status of Final
--- NOTE | 2022-03-01 11:11 | PHA.MEDREC ---
Pharmacy Consult ? Medication Reconciliation Pharmacy has completed the medication reconciliation.
[2022-03-01] MEDS: Aspirin Enteric Coated 81 MG TABLET.DR PO (12:22)
[2022-03-01 12:31] LABS: Glucose, Whole Blood 108 mg/dL (60-115)
--- NOTE | 2022-03-01 12:47 | P.CONCA_ITS ---
History of Present Illness History of Present Illness Date of Service: 03/01/22 Chief complaint: Chest pain Narrative: This is a cardiology consultation regarding chest pain. Generally seen by [facility]. It seems that there is a history of multiple prior PCIs and he has also had a coronary artery bypass surgery. Bypass surgery from 2019. Apparently also has a fractured sternal wire from the CABG. Prior PCI involving LAD, RCA circumflex at different times. He is on long-term Brilinta. He states that he was generally doing okay for last several months but as today again started having chest pain. Pain has been waxing and waning since then. No specific provoking or relieving factors. Some shortness of breath with activity too. Hence we have been asked to see him for further evaluation. Review of Systems Review of Systems: Yes all other systems are reviewed and are negative Constitutional: Constitutional: Reports as per HPI Eyes: Eyes: Reports as per HPI ENT: Reports as per HPI Cardiovascular: Cardiovascular: Reports as per HPI, Denies acrocyanosis, Denies cool extremities, Reports chest pain, Denies leg edema, Denies lightheadedness, Denies palpitations and Reports dyspnea Respiratory: Respiratory: Reports as per HPI, Reports no additional respiratory complaints and Reports dyspnea Gastrointestinal: Gastrointestinal: Reports as per HPI and Reports no additional gastrointestinal complaints Genitourinary: Genitourinary: Reports no additional male genitourinary complaints and Reports as per HPI Musculoskeletal: Musculoskeletal: Reports no additional musculoskeletal complaints and Reports as per HPI Integumentary/Breasts: Skin/Breast: Reports system reviewed and no additional complaints, except as docu Neurologic: Reports system reviewed and no additional complaints, except as documented and Reports as per HPI Psychiatric: Psychiatric: Reports no additional psychiatric complaints and Reports as per HPI Endocrine: Endocrine: Reports no additional endocrine complaints, Reports as per HPI and Denies palpitations Hematologic/Lymphatic: Hematologic/Lymphatic: Reports no additional hematologic/lymphatic complaints and Reports as per HPI Allergic/Immunologic: Allergic/Immunologic: Reports no additional allergic/immunologic complaints and Reports as per HPI [facility] Past Medical History Medical History Asthma Atherosclerotic cardiovascular disease CAD (coronary artery disease) Cancer of kidney Chronic obstructive pulmonary disease, unspecified COPD (chronic obstructive pulmonary disease) Diabetes Essential hypertension Other and unspecified hyperlipidemia Type 2 diabetes mellitus with unspecified complications Family History Family History (Updated 03/01/22 @ 12:49 by Lenny Cho MD) Mother CAD (coronary artery disease) Diabetes Surgical History Surgical History History of appendectomy Hx of cholecystectomy S/P CABG x 2 Status post coronary artery bypass graft Stented coronary artery Social History Social History (Updated 03/01/22 @ 06:58 by Cecilia Jansen DO) Household Members: Family Do you presently have visiting nurse or other home services: Yes Alcohol intake: never Patient Tobacco Use Status: Former Tobacco user Use of substances other than those prescribed or required for medical reasons: No Advance Directives: No service: No Current occupational status: unemployed Meds Allergies Allergy/AdvReac Type Severity Reaction Status Date / Time morphine Allergy Unknown Verified 03/01/22 05:17 niacin Allergy Unknown Verified 03/01/22 05:17 SHELFISH Allergy Unknown Difficulty Uncoded 03/01/22 05:17 Breathing TORADOL Allergy Unknown Difficulty Uncoded 03/01/22 05:17 Breathing Active Medications: Current Medications Acetaminophen (Acetaminophen 325 Mg Tablet) 650 mg PO Q8H PRN PRN Reason: Pain, Moderate (Pain Scale 4-6 Albuterol Sulfate (Albuterol Sulfate 90 Mcg 8 Gm Inhaler) 2 puff INHALE Q6H PRN PRN Reason: Shortness Of Breath Albuterol/Ipratropium (Albuterol/Iprat 2.5/0.5mg 3 Ml Ampul.Neb) 3 ml INHALE QID PRN PRN Reason: Shortness Of Breath Amitriptyline HCl (Amitriptyline Hcl 25 Mg Tablet) 25 mg PO BEDTIME JOSE Amlodipine Besylate (Amlodipine Besylate 10 Mg Tablet) 10 mg PO DAILY [facility]; Protocol Aspirin (Aspirin Enteric Coated 81 Mg Tablet.) 81 mg PO DAILY [facility] Last Admin: 03/01/22 12:22 Dose: 81 mg Documented by: Atorvastatin Calcium (Atorvastatin Calcium 80 Mg Tablet) 80 mg PO DAILY JOSE Clonazepam (Clonazepam 1 Mg Tablet) 1 mg PO BEDTIME JOSE Cyclobenzaprine HCl (Cyclobenzaprine Hcl 5 Mg Tablet) 5 mg PO TID PRN PRN Reason: Muscle Spasm Docusate Sodium (Docusate Sodium 100 Mg Capsule) 100 mg PO BID [facility] Ezetimibe (Ezetimibe 10 Mg Tablet) 10 mg PO DAILY [facility] Empagliflozin (Empagliflozin 25 Mg Tablet) 25 mg PO DAILY [facility] Enoxaparin Sodium (Enoxaparin Sodium 40 Mg/0.4 Ml Syringe) 40 mg SUBCUT Q24H [facility] Escitalopram Oxalate (Escitalopram Oxalate 5 Mg Tablet) 5 mg PO DAILY [facility] Gabapentin (Gabapentin 300 Mg Capsule) 300 mg PO BID@0900,1500 [facility] Gabapentin (Gabapentin 300 Mg Capsule) 600 mg PO BEDTIME [facility] Gemfibrozil (Gemfibrozil 600 Mg Tablet) 600 mg PO DAILY [facility] Insulin Glargine (Insulin Glargine,Hum.Rec.Anlog 100 Unit/Ml 10 Ml Vial) 10 unit SUBCUT BID [facility] Isosorbide Mononitrate (Isosorbide Mononitrate 60 Mg Tab.Er.24h) 120 mg PO DAILY [facility]; Protocol Loratadine (Loratadine 10 Mg Tablet) 10 mg PO DAILY [facility] Magnesium Oxide (Magnesium Oxide 400 Mg Tablet) 400 mg PO BID [facility] Metformin HCl (Metformin Hcl 1,000 Mg Tablet) 1,000 mg PO BID [facility] Metoprolol Succinate (Metoprolol Succinate Er 100 Mg Tab.Er.24h) 100 mg PO BID [facility]; Protocol Montelukast Sodium (Montelukast Sodium 10 Mg Tablet) 10 mg PO BEDTIME [facility] Nitroglycerin (Nitroglycerin 0.4 Mg Tab.Subl) 0.4 mg SUBLINGUAL Q5M PRN PRN Reason: Chest Pain Non-Formulary Medication (Gbuvrdzfkhf-Tpyufaefy-Bjmvzjcl [Trelegy Ellipta]) 1 puff INHALE DAILY [facility] Omeprazole (Omeprazole 40 Mg Capsule.Dr) 40 mg PO DAILY [facility] Oxycodone HCl (Oxycodone Hcl Immed Release 5 Mg Tablet) 10 mg PO Q8H PRN PRN Reason: Pain (Scale Score 4-6) Pharmacy Consult (Consult Rx Perform Med Rec) 1 each MISCELLANE ONCE PRN PRN Reason: Consult order Ranolazine (Ranolazine 500 Mg Tab.Er.12h) 500 mg PO BID [facility] Senna (Sennosides 8.6 Mg Tablet) 17.2 mg PO DAILY [facility] Sodium Chloride (0.9 % Sodium Chloride Flush 3 Ml Syringe) 3 ml IVFLUSH QSHIFT [facility] Ticagrelor (Ticagrelor 90 Mg Tablet) 90 mg PO BID [facility] Home Medications Medication Instructions Recorded Confirmed Last Taken Type acetaminophen 650 mg 650 mg PO Q8H PRN 12/13/20 03/01/22 Unknown History tablet,extended release (8 Hour Pain Reliever) albuterol sulfate 90 mcg/actuation 2 puff INHALATION Q6H PRN 12/13/20 03/01/22 Unknown History aerosol inhaler amlodipine 10 mg tablet 1 tab PO DAILY 12/13/20 03/01/22 Unknown History aspirin 81 mg tablet,delayed 1 tab PO DAILY 12/13/20 03/01/22 Unknown History release atorvastatin 80 mg tablet 1 tab PO DAILY 12/13/20 03/01/22 Unknown History cetirizine 10 mg tablet 1 tab PO DAILY 12/13/20 03/01/22 Unknown History clonazepam 1 mg tablet 1 tab PO BEDTIME 12/13/20 03/01/22 Unknown History cyclobenzaprine 5 mg tablet 1 tab PO TID PRN 12/13/20 03/01/22 Unknown History ezetimibe 10 mg tablet 1 tab PO DAILY 12/13/20 03/01/22 Unknown History gabapentin 300 mg capsule 300 mg PO BID@0900,1500 12/13/20 03/01/22 Unknown History gabapentin 300 mg capsule 600 mg PO BEDTIME 12/13/20 03/01/22 Unknown History gemfibrozil 600 mg tablet 600 mg PO DAILY 12/13/20 03/01/22 Unknown History insulin glargine 100 unit/mL (3 10 unit SUBCUT BID 12/13/20 03/01/22 Unknown History mL) subcutaneous pen (Lantus Solostar U-100 Insulin) ketoconazole 2 % topical cream 1 appl TOPICAL DAILY 12/13/20 03/01/22 Unknown History magnesium oxide 400 mg (241.3 mg 1 tab PO BID 12/13/20 03/01/22 Unknown History magnesium) tablet metformin 1,000 mg tablet 1,000 tab PO BID 12/13/20 03/01/22 Unknown History metoprolol succinate 100 mg 100 mg PO BID 12/13/20 03/01/22 Unknown History tablet,extended release 24 hr montelukast 10 mg tablet 1 tab PO BEDTIME 12/13/20 03/01/22 Unknown History nitroglycerin 0.4 mg sublingual 0.4 mg SUBLINGUAL Q5M PRN 12/13/20 03/01/22 Unknown History tablet omeprazole 40 mg capsule,delayed 1 cap PO DAILY 12/13/20 03/01/22 Unknown History release oxycodone 10 mg tablet 1 tab PO Q8H PRN 12/13/20 03/01/22 Unknown History sennosides 8.6 mg tablet (senna) 2 tab PO DAILY 12/13/20 03/01/22 Unknown History ticagrelor 90 mg tablet (Brilinta) 1 tab PO BID 12/13/20 03/01/22 Unknown History amitriptyline 25 mg tablet 1 tab PO BEDTIME 03/01/22 03/01/22 Unknown History docusate sodium 100 mg capsule 1 cap PO BID 03/01/22 03/01/22 Unknown History empagliflozin 25 mg tablet 1 tab PO DAILY 03/01/22 03/01/22 Unknown History (Jardiance) escitalopram oxalate 5 mg tablet 1 tab PO DAILY 03/01/22 03/01/22 Unknown History fluticasone fur. 200 mcg-umeclid 1 puff INHALATION DAILY 03/01/22 03/01/22 Unknown History 62.5 mcg-vilant 25 mcg inhalat.powder (Trelegy Ellipta) insulin aspart U-100 100 unit/mL See Protocol SUBCUT TIDAC 03/01/22 03/01/22 Unknown History (3 mL) subcutaneous pen (Novolog Flexpen U-100 Insulin aspart) ipratropium 0.5 mg-albuterol 3 mg 3 ml INHALATION QID PRN 03/01/22 03/01/22 Unknown History (2.5 mg base)/3 mL nebulization soln isosorbide mononitrate 120 mg 1 tab PO DAILY 03/01/22 03/01/22 Unknown History tablet,extended release 24 hr ranolazine 500 mg tablet,extended 1 tab PO BID 03/01/22 03/01/22 Unknown History release,12 hr Physical Exam Vital Signs: Vital Signs: Last Vital Signs Temp 97.6 F 03/01/22 11:34 Pulse 54 03/01/22 11:34 Resp 14 03/01/22 11:34 BP 136/85 03/01/22 11:34 Pulse Ox 94 03/01/22 11:34 BMI result Body Mass Index 33.5 Const: General: cooperative, healthy appearing and well developed Orientation/consciousness: patient oriented x3 HEENT: Other: Unremarkable Head: Yes normal to inspection Neck: Neck: Yes normal visual inspection Chest: Chest palpation & inspection: normal inspection of the chest Resp: Auscultation: clear to auscultation bilaterally Cardio: Palpation: normal PMI Heart sounds: S1 normal heart sound present, S2 normal heart sound present, no gallops, no murmurs and no rubs GI: Palpation (GI): Soft to palpation Back/Spine/Pelvis: Other: unremarkable Skin: General skin exam: no rashes or lesions noted Neuro: General: patient oriented x3 Extrem: General: Yes normal to inspection Psych: Mental Status: mental status grossly normal Objective Labs and Meds Result diagrams: 03/01/22 05:29 03/01/22 05:29 Lab results: Laboratory Results - last 24 hr 03/01/22 03/01/22 03/01/22 05:29 05:29 05:29 WBC 7.4 RBC 6.61 H Hgb 16.1 Hct 50.4 MCV 76.2 L MCH 24.4 L MCHC 31.9 RDW 20.1 H Plt Count 308 MPV 9.3 L Immature Gran % (Auto) 0.7 H Neut % (Auto) 50.8 Lymph % (Auto) 38.2 Rice % (Auto) 8.1 Eos % (Auto) 1.9 Baso % (Auto) 0.3 Lymph # (Auto) 2.8 Rice # (Auto) 0.6 Eos # (Auto) 0.1 Baso # (Auto) 0.0 Abs Immat Gran (auto) 0.05 H Absolute Neuts (auto) 3.8 Absolute Nucleated RBC 0.000 Nucleated RBC % (auto) 0.0 PT INR Sodium 141 Potassium 4.6 Chloride 104 Carbon Dioxide 25 Anion Gap 17 BUN 23 H Creatinine 1.14 Estim Creat Clear Calc 97.2 Estimated GFR > 60 POC Glucose Random Glucose 160 H Calcium 10.8 H D Troponin I High Sens 5.7 Urine Opiates Screen Urine Fentanyl Screen Ur Barbiturates Screen Ur Phencyclidine Scrn Ur Amphetamines Screen U Benzodiazepines Scrn Urine Cocaine Screen U Marijuana (THC) Screen COVID-19 (JUDE) COVID-19 Clin Com 03/01/22 03/01/22 03/01/22 05:29 05:29 07:49 WBC RBC Hgb Hct MCV MCH MCHC RDW Plt Count MPV Immature Gran % (Auto) Neut % (Auto) Lymph % (Auto) Rice % (Auto) Eos % (Auto) Baso % (Auto) Lymph # (Auto) Rice # (Auto) Eos # (Auto) Baso # (Auto) Abs Immat Gran (auto) Absolute Neuts (auto) Absolute Nucleated RBC Nucleated RBC % (auto) PT 11.2 INR 1.0 Sodium Potassium Chloride Carbon Dioxide Anion Gap BUN Creatinine Estim Creat Clear Calc Estimated GFR POC Glucose Random Glucose Calcium Troponin I High Sens Urine Opiates Screen Not Detected Urine Fentanyl Screen Not Detected Ur Barbiturates Screen Not Detected Ur Phencyclidine Scrn Not Detected Ur Amphetamines Screen Not Detected U Benzodiazepines Scrn Not Detected Urine Cocaine Screen Not Detected U Marijuana (THC) Screen Not Detected COVID-19 (JUDE) Negative COVID-19 Clin Com See Note 03/01/22 03/01/22 08:27 12:27 WBC RBC Hgb Hct MCV MCH MCHC RDW Plt Count MPV Immature Gran % (Auto) Neut % (Auto) Lymph % (Auto) Rice % (Auto) Eos % (Auto) Baso % (Auto) Lymph # (Auto) Rice # (Auto) Eos # (Auto) Baso # (Auto) Abs Immat Gran (auto) Absolute Neuts (auto) Absolute Nucleated RBC Nucleated RBC % (auto) PT INR Sodium Potassium Chloride Carbon Dioxide Anion Gap BUN Creatinine Estim Creat Clear Calc Estimated GFR POC Glucose 108 Random Glucose Calcium Troponin I High Sens 3.9 Urine Opiates Screen Urine Fentanyl Screen Ur Barbiturates Screen Ur Phencyclidine Scrn Ur Amphetamines Screen U Benzodiazepines Scrn Urine Cocaine Screen U Marijuana (THC) Screen COVID-19 (JUDE) COVID-19 Clin Com ECG Interpretation: EKG with sinus rhythm at 68/Min; no significant ST-T changes and otherwise unremarkable. Imaging Radiologist's impression: Impressions Chest X-Ray 03/01/22 05:45 IMPRESSION: Clear lungs. Head CT 03/01/22 08:43 IMPRESSION: Unremarkable examination of there is no evidence of acute intracranial hemorrhage. No intracranial mass effect or hydrocephalus. Assessment and Plan (1) Chest pain: Qualifiers: Chest pain type: precordial pain Qualified Code(s): R07.2 - Precordial pain Status: Acute (2) Atherosclerotic cardiovascular disease: Status: Acute (3) Status post coronary artery bypass graft: Status: Acute (4) Stented coronary artery: Status: Acute (5) Type 2 diabetes mellitus with unspecified complications: Status: Acute (6) Essential hypertension: Status: Acute (7) Other and unspecified hyperlipidemia: Status: Acute (8) Chronic obstructive pulmonary disease, unspecified: Qualifiers: COPD type: unspecified COPD Qualified Code(s): J44.9 - Chronic obstructive pulmonary disease, unspecified Status: Acute Plan High sensitivity troponins are within range. EKG is not showing any ischemic changes. With ongoing pain and negative high sensitivity troponins, unlikely to be acute coronary syndrome. However, he does have an extensive cardiac history and multiple risk factors. He is on dual antiplatelet therapy at baseline and also on significant dose of beta-blockers and also Ranexa. Hence we will proceed with further workup with an echocardiogram and stress test. Discussed with patient about the plan he understands and agrees. Procedures Date of Service Date of Service: 03/01/22
[2022-03-01] MEDS: Enoxaparin Sodium 40 MG/0.4 ML SYRINGE SUBCUT (13:34)
--- NOTE | 2022-03-01 13:37 | PC.NURSE ---
pt has been sleeping. when wakened by this rn requests pain meds for chest pain. pt declining to take what is offered, oxycodone, nitro, flexaril. SB on monitor. skin pwd.
--- NOTE | 2022-03-01 14:21 | PM.IMHP ---
History of Present Illness Date of Service: 03/01/22 Chief Complaint: chest pain 51 yo male with hx of COPD, DM, anxiety, pain issues, CAD s/p multiple PCIs and CABG 2 years ago has a hx of chest pain after the procedure but not as severe where he was coming every twice a week to the hospital. He notes yesterday at 7pm he was watching TV at home developed nausea, dizziness, chest pressure and dyspnea. The pressure makes his left arm feel tingly. He has had these episodes before. He took 5 nitro and tried to wait at [facility] for 6 hours in their waiting room. He had no relief with nitro and when he went home he felt dizzy and states he briefly fell and had short LOC and hit head on stairs. He notes nitro has never helped his pain in the past and he is allergic to morphine. ER: High sensitivity troponins are within range; EKG is without ischemic changes. Given extensive history will be admitted for further workup of chest pain Review of Systems Review of Systems: Admits to chest pain that has resolved Denies shortness of breath Denies nausea vomiting diarrhea Denies fever chills [facility] Medical History Asthma Atherosclerotic cardiovascular disease CAD (coronary artery disease) Cancer of kidney Chronic obstructive pulmonary disease, unspecified COPD (chronic obstructive pulmonary disease) Diabetes Essential hypertension Other and unspecified hyperlipidemia Type 2 diabetes mellitus with unspecified complications Family History Mother CAD (coronary artery disease) Diabetes Surgical History History of appendectomy Hx of cholecystectomy S/P CABG x 2 Status post coronary artery bypass graft Stented coronary artery Social History Household Members: Family Do you presently have visiting nurse or other home services: Yes Alcohol intake: never Patient Tobacco Use Status: Former Tobacco user Use of substances other than those prescribed or required for medical reasons: No Advance Directives: No service: No Current occupational status: unemployed Meds Allergies Allergy/AdvReac Type Severity Reaction Status Date / Time morphine Allergy Unknown Verified 03/01/22 05:17 niacin Allergy Unknown Verified 03/01/22 05:17 SHELFISH Allergy Unknown Difficulty Uncoded 03/01/22 05:17 Breathing TORADOL Allergy Unknown Difficulty Uncoded 03/01/22 05:17 Breathing Active Medications: Current Medications Acetaminophen (Acetaminophen 325 Mg Tablet) 650 mg PO Q8H PRN PRN Reason: Pain, Moderate (Pain Scale 4-6 Albuterol Sulfate (Albuterol Sulfate 90 Mcg 8 Gm Inhaler) 2 puff INHALE Q6H PRN PRN Reason: Shortness Of Breath Albuterol/Ipratropium (Albuterol/Iprat 2.5/0.5mg 3 Ml Ampul.Neb) 3 ml INHALE QID PRN PRN Reason: Shortness Of Breath Amitriptyline HCl (Amitriptyline Hcl 25 Mg Tablet) 25 mg PO BEDTIME [facility] Amlodipine Besylate (Amlodipine Besylate 10 Mg Tablet) 10 mg PO DAILY [facility]; Protocol Aspirin (Aspirin Enteric Coated 81 Mg Tablet.) 81 mg PO DAILY [facility] Last Admin: 03/01/22 12:22 Dose: 81 mg Documented by: Atorvastatin Calcium (Atorvastatin Calcium 80 Mg Tablet) 80 mg PO DAILY [facility] Clonazepam (Clonazepam 1 Mg Tablet) 1 mg PO BEDTIME [facility] Cyclobenzaprine HCl (Cyclobenzaprine Hcl 5 Mg Tablet) 5 mg PO TID PRN PRN Reason: Muscle Spasm Docusate Sodium (Docusate Sodium 100 Mg Capsule) 100 mg PO BID [facility] Ezetimibe (Ezetimibe 10 Mg Tablet) 10 mg PO DAILY [facility] Empagliflozin (Empagliflozin 25 Mg Tablet) 25 mg PO DAILY [facility] Enoxaparin Sodium (Enoxaparin Sodium 40 Mg/0.4 Ml Syringe) 40 mg SUBCUT Q24H [facility] Last Admin: 03/01/22 13:34 Dose: 40 mg Documented by: Escitalopram Oxalate (Escitalopram Oxalate 5 Mg Tablet) 5 mg PO DAILY [facility] Fluticasone/Vilanterol (Fluticasone/Vilanterol 100/25 Blst.W.Dev) 1 puff INHALE RDAILY [facility] Gabapentin (Gabapentin 300 Mg Capsule) 300 mg PO BID@0900,1500 [facility] Gabapentin (Gabapentin 300 Mg Capsule) 600 mg PO BEDTIME [facility] Gemfibrozil (Gemfibrozil 600 Mg Tablet) 600 mg PO DAILY [facility] Insulin Glargine (Insulin Glargine,Hum.Rec.Anlog 100 Unit/Ml 10 Ml Vial) 10 unit SUBCUT BID [facility] Isosorbide Mononitrate (Isosorbide Mononitrate 60 Mg Tab.Er.24h) 120 mg PO DAILY JOSE; Protocol Loratadine (Loratadine 10 Mg Tablet) 10 mg PO DAILY [facility] Magnesium Oxide (Magnesium Oxide 400 Mg Tablet) 400 mg PO BID [facility] Metformin HCl (Metformin Hcl 1,000 Mg Tablet) 1,000 mg PO BID [facility] Metoprolol Succinate (Metoprolol Succinate Er 100 Mg Tab.Er.24h) 100 mg PO BID [facility]; Protocol Montelukast Sodium (Montelukast Sodium 10 Mg Tablet) 10 mg PO BEDTIME [facility] Nitroglycerin (Nitroglycerin 0.4 Mg Tab.Subl) 0.4 mg SUBLINGUAL Q5M PRN PRN Reason: Chest Pain Omeprazole (Omeprazole 40 Mg Capsule.Dr) 40 mg PO DAILY [facility] Oxycodone HCl (Oxycodone Hcl Immed Release 5 Mg Tablet) 10 mg PO Q8H PRN PRN Reason: Pain (Scale Score 4-6) Pharmacy Consult (Consult Rx Perform Med Rec) 1 each MISCELLANE ONCE PRN PRN Reason: Consult order Ranolazine (Ranolazine 500 Mg Tab.Er.12h) 500 mg PO BID [facility] Senna (Sennosides 8.6 Mg Tablet) 17.2 mg PO DAILY [facility] Sodium Chloride (0.9 % Sodium Chloride Flush 3 Ml Syringe) 3 ml IVFLUSH QSHIFT [facility] Ticagrelor (Ticagrelor 90 Mg Tablet) 90 mg PO BID [facility] Tiotropium Lynn (Tiotropium Lynn 18 Mcg Cap.W.Dev) 1 puff INHALE RDAILY [facility] Home Medications Medication Instructions Recorded Confirmed Last Taken Type acetaminophen 650 mg 650 mg PO Q8H PRN 12/13/20 03/01/22 Unknown History tablet,extended release (8 Hour Pain Reliever) albuterol sulfate 90 mcg/actuation 2 puff INHALATION Q6H PRN 12/13/20 03/01/22 Unknown History aerosol inhaler amlodipine 10 mg tablet 1 tab PO DAILY 12/13/20 03/01/22 Unknown History aspirin 81 mg tablet,delayed 1 tab PO DAILY 12/13/20 03/01/22 Unknown History release atorvastatin 80 mg tablet 1 tab PO DAILY 12/13/20 03/01/22 Unknown History cetirizine 10 mg tablet 1 tab PO DAILY 12/13/20 03/01/22 Unknown History clonazepam 1 mg tablet 1 tab PO BEDTIME 12/13/20 03/01/22 Unknown History cyclobenzaprine 5 mg tablet 1 tab PO TID PRN 12/13/20 03/01/22 Unknown History ezetimibe 10 mg tablet 1 tab PO DAILY 12/13/20 03/01/22 Unknown History gabapentin 300 mg capsule 300 mg PO BID@0900,1500 12/13/20 03/01/22 Unknown History gabapentin 300 mg capsule 600 mg PO BEDTIME 12/13/20 03/01/22 Unknown History gemfibrozil 600 mg tablet 600 mg PO DAILY 12/13/20 03/01/22 Unknown History insulin glargine 100 unit/mL (3 10 unit SUBCUT BID 12/13/20 03/01/22 Unknown History mL) subcutaneous pen (Lantus Solostar U-100 Insulin) ketoconazole 2 % topical cream 1 appl TOPICAL DAILY 12/13/20 03/01/22 Unknown History magnesium oxide 400 mg (241.3 mg 1 tab PO BID 12/13/20 03/01/22 Unknown History magnesium) tablet metformin 1,000 mg tablet 1,000 tab PO BID 12/13/20 03/01/22 Unknown History metoprolol succinate 100 mg 100 mg PO BID 12/13/20 03/01/22 Unknown History tablet,extended release 24 hr montelukast 10 mg tablet 1 tab PO BEDTIME 12/13/20 03/01/22 Unknown History nitroglycerin 0.4 mg sublingual 0.4 mg SUBLINGUAL Q5M PRN 12/13/20 03/01/22 Unknown History tablet omeprazole 40 mg capsule,delayed 1 cap PO DAILY 12/13/20 03/01/22 Unknown History release oxycodone 10 mg tablet 1 tab PO Q8H PRN 12/13/20 03/01/22 Unknown History sennosides 8.6 mg tablet (senna) 2 tab PO DAILY 12/13/20 03/01/22 Unknown History ticagrelor 90 mg tablet (Brilinta) 1 tab PO BID 12/13/20 03/01/22 Unknown History amitriptyline 25 mg tablet 1 tab PO BEDTIME 03/01/22 03/01/22 Unknown History docusate sodium 100 mg capsule 1 cap PO BID 03/01/22 03/01/22 Unknown History empagliflozin 25 mg tablet 1 tab PO DAILY 03/01/22 03/01/22 Unknown History (Jardiance) escitalopram oxalate 5 mg tablet 1 tab PO DAILY 03/01/22 03/01/22 Unknown History fluticasone fur. 200 mcg-umeclid 1 puff INHALATION DAILY 03/01/22 03/01/22 Unknown History 62.5 mcg-vilant 25 mcg inhalat.powder (Trelegy Ellipta) insulin aspart U-100 100 unit/mL See Protocol SUBCUT TIDAC 03/01/22 03/01/22 Unknown History (3 mL) subcutaneous pen (Novolog Flexpen U-100 Insulin aspart) ipratropium 0.5 mg-albuterol 3 mg 3 ml INHALATION QID PRN 03/01/22 03/01/22 Unknown History (2.5 mg base)/3 mL nebulization soln isosorbide mononitrate 120 mg 1 tab PO DAILY 03/01/22 03/01/22 Unknown History tablet,extended release 24 hr ranolazine 500 mg tablet,extended 1 tab PO BID 03/01/22 03/01/22 Unknown History release,12 hr Physical Exam Vital Signs and Narrative: Vital Signs: Last Vital Signs Temp 97.6 F 03/01/22 11:34 Pulse 69 03/01/22 14:18 Resp 11 L 03/01/22 14:18 BP 138/85 03/01/22 14:18 Pulse Ox 96 03/01/22 14:18 BMI result Body Mass Index 33.5 Const: Other: Awake alert no acute distress Resp: Other: Clear to auscultation bilaterally no rales rhonchi wheezes Cardio: Other: No S4; positive S1-S2; no S3 murmurs rubs or gallops GI: Other: Soft nontender nondistended with normoactive bowel sounds Extrem: Other: No edema bilaterally Results Labs CBC and Chem 7: 03/01/22 05:29 03/01/22 05:29 Labs: Laboratory Results - last 24 hr 03/01/22 03/01/22 03/01/22 05:29 05:29 05:29 MCV 76.2 L MCH 24.4 L MCHC 31.9 RDW 20.1 H Plt Count 308 MPV 9.3 L Immature Gran % (Auto) 0.7 H Neut % (Auto) 50.8 Lymph % (Auto) 38.2 Baker % (Auto) 8.1 Eos % (Auto) 1.9 Baso % (Auto) 0.3 Lymph # (Auto) 2.8 Baker # (Auto) 0.6 Eos # (Auto) 0.1 Baso # (Auto) 0.0 Abs Immat Gran (auto) 0.05 H Absolute Neuts (auto) 3.8 Absolute Nucleated RBC 0.000 Nucleated RBC % (auto) 0.0 PT INR Anion Gap 17 Estim Creat Clear Calc 97.2 Estimated GFR > 60 POC Glucose Random Glucose 160 H Calcium 10.8 H D Troponin I High Sens 5.7 Urine Opiates Screen Urine Fentanyl Screen Ur Barbiturates Screen Ur Phencyclidine Scrn Ur Amphetamines Screen U Benzodiazepines Scrn Urine Cocaine Screen U Marijuana (THC) Screen COVID-19 (JUDE) COVID-Timecros 03/01/22 03/01/22 03/01/22 05:29 05:29 07:49 MCV MCH MCHC RDW Plt Count MPV Immature Gran % (Auto) Neut % (Auto) Lymph % (Auto) Baker % (Auto) Eos % (Auto) Baso % (Auto) Lymph # (Auto) Baker # (Auto) Eos # (Auto) Baso # (Auto) Abs Immat Gran (auto) Absolute Neuts (auto) Absolute Nucleated RBC Nucleated RBC % (auto) PT 11.2 INR 1.0 Anion Gap Estim Creat Clear Calc Estimated GFR POC Glucose Random Glucose Calcium Troponin I High Sens Urine Opiates Screen Not Detected Urine Fentanyl Screen Not Detected Ur Barbiturates Screen Not Detected Ur Phencyclidine Scrn Not Detected Ur Amphetamines Screen Not Detected U Benzodiazepines Scrn Not Detected Urine Cocaine Screen Not Detected U Marijuana (THC) Screen Not Detected COVID-19 (JUDE) Negative COVID-Timecros See Note 03/01/22 03/01/22 08:27 12:27 MCV MCH MCHC RDW Plt Count MPV Immature Gran % (Auto) Neut % (Auto) Lymph % (Auto) Baker % (Auto) Eos % (Auto) Baso % (Auto) Lymph # (Auto) Baker # (Auto) Eos # (Auto) Baso # (Auto) Abs Immat Gran (auto) Absolute Neuts (auto) Absolute Nucleated RBC Nucleated RBC % (auto) PT INR Anion Gap Estim Creat Clear Calc Estimated GFR POC Glucose 108 Random Glucose Calcium Troponin I High Sens 3.9 Urine Opiates Screen Urine Fentanyl Screen Ur Barbiturates Screen Ur Phencyclidine Scrn Ur Amphetamines Screen U Benzodiazepines Scrn Urine Cocaine Screen U Marijuana (THC) Screen COVID-19 (JUDE) COVID-19 Clin Com Imaging Radiologist's Impressions: Impressions Chest X-Ray 03/01/22 05:45 IMPRESSION: Clear lungs. Head CT 03/01/22 08:43 IMPRESSION: Unremarkable examination of there is no evidence of acute intracranial hemorrhage. No intracranial mass effect or hydrocephalus. Assessment and Plan (1) Chest pain: Qualifiers: Chest pain type: precordial pain Qualified Code(s): R07.2 - Precordial pain Status: Acute (2) Chronic obstructive pulmonary disease, unspecified: Qualifiers: COPD type: unspecified COPD Qualified Code(s): J44.9 - Chronic obstructive pulmonary disease, unspecified Status: Acute (3) Essential hypertension: Status: Acute (4) Type 2 diabetes mellitus with unspecified complications: Status: Acute Plan 51-year-old male with a history of atherosclerotic heart disease status post coronary artery bypass grafting presents with chest pain that is intermittent in nature and not responding to nitroglycerin. Emergency room troponins were flat and EKG was without ischemic changes. 1. Chest pain (in backdrop of atherosclerotic cardiovascular disease) -admit to telemetry; trend enzymes -2D echo -cardiology to stress in a.m. 2. COPD -examines with mild exacerbation -will start oral steroids and titrate as outpatient -DuoNebs as indicated 3. Hypertension -acceptable control on current therapies -adjust as indicated 4. Diabetes type 2 -acceptable control on outpatient therapies -add list pro correctional scale -ADA diet Full code Lovenox Patient will require and this 1 midnight going forward for workup of presenting chest pain Quality Stroke Does the patient have a stroke diagnosis?: No VTE Prior VTE?: No VTE Risk Level:: Medical - moderate - high VTE Device Contraindication: Treatment Not Indicated VTE Drug Contraindication: N/A - Med Ordered
--- NOTE | 2022-03-01 15:16 | PC.NURSE ---
Pt was found, fully dressed, walking into [facility] from ED. Pt had removed IV himself, still had cardiac leads on, strong steady gait. skin pwd. [id number]. When asked why he was leaving repeated i just can't stay here . Pt was unwilling to elaborate. Doc Francisca made aware. Pt signed AMA paperwork and left. Stated he'd follow up with PCP and Decision Support Analyst.
== END 2022-03-01 16:41 | disposition left against medical advice (07) ==
LOC: HO.ED 09:30 → HO.EDOVER 11:57
PROVIDERS: Admitting Provider Hospitalist; Emergency Provider Emergency Medicine; PCP Registered Nurse; Visit Provider Hospitalist
DX: R07.2 Precordial pain (principal); I25.10 Atherosclerotic heart disease of native coronary artery without angina pectoris; I10 Essential (primary) hypertension; I25.2 Old myocardial infarction; S00.81XA Abrasion of other part of head, initial encounter; S40.012A Contusion of left shoulder, initial encounter; W18.39XA Other fall on same level, initial encounter; Y93.89 Activity, other specified; Y92.009 Unspecified place in unspecified non-institutional (private) residence as the place of occurrence of the external cause; Y99.8 Other external cause status; E11.8 Type 2 diabetes mellitus with unspecified complications; E78.5 Hyperlipidemia, unspecified; J44.9 Chronic obstructive pulmonary disease, unspecified; F41.9 Anxiety disorder, unspecified; Z87.891 Personal history of nicotine dependence; Z20.822 Contact with and (suspected) exposure to COVID-19; Z95.1 Presence of aortocoronary bypass graft; Z95.5 Presence of coronary angioplasty implant and graft; Z88.8 Allergy status to other drugs, medicaments and biological substances; Z88.6 Allergy status to analgesic agent; Z91.013 Allergy to seafood; Z79.4 Long term (current) use of insulin; Z79.02 Long term (current) use of antithrombotics/antiplatelets; Z99.81 Dependence on supplemental oxygen; Z79.899 Other long term (current) drug therapy; Z53.29 Procedure and treatment not carried out because of patient's decision for other reasons
CPT/HCPCS: 36415; 70450; 71045; 80048; 80307; 82947; 84484; 85025; 85610; 87635; 93005; 93306; 94640; 96372; 96374; 96375; 96376; 99205; 99219; 99284; 99285; J1170; J1650; J2405; Q9957